=== PATIENT | male | born 1970 | race Caucasian/White ===

== ENCOUNTER 2022-01-19 09:46 | Inpatient (IN) | payer MEDICAID, SELFPAY ==
[2022-01-19] VITALS (43 sets, daily range): BP systolic 138–175; BP diastolic 96–126; PULSE 77–112; RESP 14–28; TEMP 37.1–37.2; O2SAT 90–95; BMI 26.8
--- NOTE | 2022-01-19 09:51 | XR_ITS ---
WS: [id number] Exam: XR chest 1V portable [id number] Date/Time of Exam: 01/19/2022 10:01 AM Reason For Exam: chest pain No priors. Bibasal interstitial infiltrates noted that may represent chronic change or active pneumonia. Normal cardiomediastinal silhouette. Blunted left costophrenic angle that might indicate small pleural effus ion. No pneumothorax. Bony structures are intact. XR/XR chest 1V portable [id number] IMPRESSION: 1. 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 Possible small left pleural effusion.
--- NOTE | 2022-01-19 09:51 | ECG_ITS ---
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 Measurements Intervals [place] Rate: 105 P: 54 [place]: 186 QRS: 47 QRSD: 94 T: 52 QT: 350 QTc: 463 Interpretive Statements SINUS TACHYCARDIA WITH FREQUENT SUPRAVENTRICULAR PREMATURE COMPLEXES LEFT ATRIAL ENLARGEMENT [-0.15mV P WAVE IN V1/V2] LEFT VENTRICULAR HYPERTROPHY AND ST-T CHANGE [VOLTAGE CRITERIA PLUS ST/T ABNORMALITY] Compared to ECG 01/19/2022 10:03:45 No significant changes Electronically Signed On 01-19-2022 20:59:02 CDT by Elis Robles M.D. [id number]
[2022-01-19] MEDS: aspirin 81 mg Chew Tablet 324 MG PO (11:21)
[2022-01-19] MEDS: nitroglycerin 1 gm/inch oint Pkt 1 INCH TOPICAL (11:21)
[2022-01-19] MEDS: aspirin 81 mg Chew Tablet PO (11:30)
[2022-01-19 11:47] LABS: Basophils # 0.1 10^3/uL (0.0-0.1); Basophils % 0.4 %; Eosinophils # 0.1 10^3/uL (0.0-0.8); Eosinophils % 0.8 %; Hemoglobin 14.7 g/dL (11.7-16.6); Lymphocytes # 1.8 10^3/uL (0.8-4.8); Mean Corpuscular HGB Conc 32.7 g/dL (30.0-36.0); Mean Corpuscular Hemoglobin 30.4 pg (28.0-34.0); Mean Platelet Volume 11.6 fL (7.4-10.4); Monocytes # 0.8 10^3/uL (0.2-0.9); Monocytes % 4.9 %; Neutrophils # 13.15 10^3/uL (1.8-7.7); Neutrophils % 82.6 %; Nucleated Red Blood Cells % 0 %; Platelet Count 210 10^3/cmm (130-400); Red Blood Count 4.84 10^6/uL (4.1-5.3); Red Cell Distribution Width 13.2 % (12.1-15.1); White Blood Count 15.9 10^3/uL (4.0-10.0)
--- NOTE | 2022-01-19 11:51 | ECG_ITS ---
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 Measurements Intervals [place] Rate: 109 P: 38 [place]: 140 QRS: 52 QRSD: 89 T: 64 QT: 333 QTc: 450 Interpretive Statements SINUS TACHYCARDIA POSSIBLE LEFT ATRIAL ENLARGEMENT [-0.1mV P-WAVE IN V1/V2] LEFT VENTRICULAR HYPERTROPHY AND ST-T CHANGE [VOLTAGE CRITERIA PLUS ST/T ABNORMALITY] No previous ECG available for comparison Electronically Signed On 01-19-2022 21:04:08 CDT by Elis Robles M.D. [id number]
[2022-01-19 12:03] LABS: Alanine Aminotransferase 19 U/L (0-41); Albumin Level 4.5 g/dL (3.5-5.2); Alkaline Phosphatase 66 IU/L (40-130); Anion Gap 17.9 (5-19); Aspartate Amino Transferase 18 U/L (0-40); Blood Urea Nitrogen 20 mg/dL (6-20); Calcium 9.2 mg/dL (8.5-10.5); Carbon Dioxide 21 mmol/L (22-29); Chloride 104 mmol/L (98-107); Globulin 2.5 g/dL (1.3-4.6); Glomerular Filtration Rate 88.3 mL/min (90-130); Glucose 91 mg/dL (65-115); Osmolality Calculated 290 mOsm/kg (285-295); Potassium 3.9 mmol/L (3.5-5.1); Sodium 139 mmol/L (136-145); Total Bilirubin 0.7 mg/dL (0.15-1.2)
[2022-01-19 12:06] LABS: Troponin(5th) Baseline 31 ng/L (0-15)
--- NOTE | 2022-01-19 12:17 | W.ED.CHESTPA ---
HPI - Chest Pain General: Chief Complaint: Chest Pain Stated Complaint: Chest Pain Time Seen by Provider: 01/19/22 10:08 Source: patient Mode of arrival: ambulatory Limitations: no limitations History of Present Illness: 51-year-old male presents emergency room with complaint of chest pain. States he has had the pain for 2 weeks worse with exertion better when he rests. He gets diaphoretic and short of breath with that. He has no known history of heart disease he is not diabetic he is not currently taking anything. He has noticed that is progressively been worsening over that timeframe. Symptoms have progressively intensified over the last 2 weeks as well MD complaint: chest pain Onset (ago): week(s) (2) Timing of current episode: episodic Prior episodes: Yes Onset: during rest and during exertion Pain location: left chest Quality: tightness, aching and heaviness Relieving factors: rest Exacerbating factors: exertion Associated symptoms: Reports diaphoresis and dyspnea; Deny abdominal pain, fever(s), leg edema, nausea, palpitations, sense of impending doom, syncope or vomiting Treatment prior to arrival: none Review of Systems Const: Reports: diaphoresis; Denies: fever(s), chills, fatigue or malaise ENMT: Denies: throat pain, ear or mastoid pain, nasal discharge or nasal congestion Card: Reports: chest pain; Denies: palpitations or syncope Resp: Reports: dyspnea; Denies: productive cough, non-productive cough or wheezing GI: Denies: abdominal pain, nausea or vomiting : Denies: flank pain, difficulty urinating, dysuria, urinary frequency or urinary urgency Skin/Breast: Denies: rash or pruritus PFS ED PFSH: Medical History No significant past medical history Surgical History No pertinent past surgical history Social History Smoking and tobacco status: current every day smoker Alcohol intake: never Physical Exam Const: GENERAL APPEARANCE: cooperative and comfortable ORIENTATION/CONSCIOUSNESS: Yes awake, Yes oriented to person, Yes oriented to place and Yes oriented to time HENMT: COMMON NORMALS: normocephalic and atraumatic HEAD & SCALP: normocephalic and atraumatic Resp: COMMON NORMALS: normal respiratory effort, No retractions, No use of accessory muscles and clear to auscultation bilaterally AUSCULTATION: clear to auscultation bilaterally Cardio: COMMON NORMALS: regular rate, regular rhythm and No murmurs present (Cardio) RATE: regular rate RHYTHM: regular rhythm GI: COMMON NORMALS: Soft to palpation and No hepatosplenomegaly present AUSCULTATION: Yes normoactive bowel sounds PALPATION: Yes Soft to palpation, No Tenderness to palpation present (GI), No Guarding due to palpation present (GI) and Yes No hepatosplenomegaly present Extremity: COMMON NORMALS: normal to inspection, capillary refill normal, no clubbing, cyanosis or edema, no calf tenderness and no pedal edema Neuro: SENSORIUM/ORIENTATION: Yes oriented to person, Yes oriented to place and Yes oriented to time Skin: COMMON NORMALS: no rashes or lesions noted GENERAL SKIN EXAM: no rashes or lesions noted Course Vital Signs: Vital signs: Vital Signs Temperature 98.7 F 01/19/22 09:58 Pulse Rate 105 H 01/19/22 12:15 Respiratory Rate 18 01/19/22 12:15 Blood Pressure 138/115 01/19/22 13:56 Pulse Oximetry 93 01/19/22 12:15 MDM - Chest Pain Medical Decision Making Patient's symptoms are quite concerning with place Nitropaste chest x-ray read as pneumonia was given Rocephin and Zithromax. More concerned about anginal-like symptoms especially escalation discussed with hospitalist we switched him to a nitro drip will admit consult cardiology Medical Records I reviewed the patient's medical records. Lab Data I reviewed the patient's lab results. : 01/19/22 11:09 01/19/22 11:09 Radiology Impressions Chest X-Ray 01/19/22 09:51 IMPRESSION: 1. Bibasal interstitial infiltrates that may represent active pneumonia or chronic change. Possible small left pleural effusion. Laboratory Results WBC 15.9 10^3/uL (4.0-10.0) H 01/19/22 11:09 RBC 4.84 10^6/uL (4.1-5.3) 01/19/22 11:09 Hgb 14.7 g/dL (11.7-16.6) 01/19/22 11:09 Hct 45.0 % (42.0-52.0) 01/19/22 11:09 MCV 93.0 fl (80-94) 01/19/22 11:09 MCH 30.4 pg (28.0-34.0) 01/19/22 11:09 MCHC 32.7 g/dL (30.0-36.0) 01/19/22 11:09 RDW 13.2 % (12.1-15.1) 01/19/22 11:09 Plt Count 210 10^3/cmm (130-400) 01/19/22 11:09 MPV 11.6 fL (7.4-10.4) H 01/19/22 11:09 Neut % (Auto) 82.6 % 01/19/22 11:09 Lymph % (Auto) 11.0 % 01/19/22 11:09 Marion % (Auto) 4.9 % 01/19/22 11:09 Eos % (Auto) 0.8 % 01/19/22 11:09 Baso % (Auto) 0.4 % 01/19/22 11:09 Neut # (Auto) 13.15 10^3/uL (1.8-7.7) H 01/19/22 11:09 Lymph # (Auto) 1.8 10^3/uL (0.8-4.8) 01/19/22 11:09 Marion # (Auto) 0.8 10^3/uL (0.2-0.9) 01/19/22 11:09 Eos # (Auto) 0.1 10^3/uL (0.0-0.8) 01/19/22 11:09 Baso # (Auto) 0.1 10^3/uL (0.0-0.1) 01/19/22 11:09 Nucleated RBC % (auto) 0 % 01/19/22 11:09 Nucleated RBCs # 0.0 /100WBC 01/19/22 11:09 Sodium 139 mmol/L (136-145) 01/19/22 11:09 Potassium 3.9 mmol/L (3.5-5.1) 01/19/22 11:09 Chloride 104 mmol/L (98-107) 01/19/22 11:09 Carbon Dioxide 21 mmol/L (22-29) L 01/19/22 11:09 Anion Gap 17.9 (5-19) 01/19/22 11:09 BUN 20 mg/dL (6-20) 01/19/22 11:09 Creatinine 0.9 mg/dL (0.7-1.2) 01/19/22 11:09 GFR Calculation 88.3 mL/min (90-130) L 01/19/22 11:09 Glucose 91 mg/dL (65-115) 01/19/22 11:09 Calculated Osmolality 290 mOsm/kg (285-295) 01/19/22 11:09 Calcium 9.2 mg/dL (8.5-10.5) 01/19/22 11:09 Total Bilirubin 0.7 mg/dL (0.15-1.2) 01/19/22 11:09 AST 18 U/L (0-40) 01/19/22 11:09 ALT 19 U/L (0-41) 01/19/22 11:09 Alkaline Phosphatase 66 IU/L (40-130) 01/19/22 11:09 Troponin T Baseline 31 ng/L (0-15) H 01/19/22 11:09 Troponin T 120 Minute 29.35 ng/L (0-15) H 01/19/22 11:50 Delta Troponin T -1.65 ABS# (0-10) L 01/19/22 11:50 Total Protein 7.0 g/dL (6.6-8.7) 01/19/22 11:09 Albumin 4.5 g/dL (3.5-5.2) 01/19/22 11:09 Globulin 2.5 g/dL (1.3-4.6) 01/19/22 11:09 Discharge Plan Discharge Patient Disposition: Admitted As Inpatient Admit Provider: Mark Pimentel Clinical Impression: Stable angina, Pneumonia Condition: Stable Coding Level of Care Code ED Hypoid Gear Tester for Thomas Fwd Exam Detailed
[2022-01-19] MEDS: cefTRIAXone 1,000 MG in sodium chloride 0.9% (plus) 50 ML 100 MG IV (12:24)
[2022-01-19 12:38] LABS: Troponin 5 2HR 29.35 ng/L (0-15)
[2022-01-19 12:43] LABS: Troponin 5 2HR Delta -1.65 ABS# (0-10)
[2022-01-19] MEDS: azithromycin 500 MG in sodium chloride 0.9% 250 ML 250 MG IV (12:54)
[2022-01-19] MEDS: nitroglycerin drip 50 MG/250 ML PREMIX IV (14:16)
--- NOTE | 2022-01-19 14:29 | USCV_ITS ---
Diallo Ed Age: 51 Gender: M : 1970 Exam Date: 01/19/2022 15:08 Ordering Phys: Mark Pimentel MD Technologist: Julien Bird Exam Location: [facility] [place] Indication: Chest pain BP: 115 / 115 HR: 43 Rhythm: Sinus Technical Quality: Adequate MEASUREMENTS (Male / Female) Normal Values 2D ECHO LV Diastolic Diameter PLAX 6.7 cm 4.2 - 5.9 / 3.9 - 5.3 cm LV Systolic Diameter PLAX 5.8 cm IVS Diastolic Thickness 1.3 cm 0.6 - 1.0 / 0.6 - 0.9 cm IVS Systolic Thickness 1.2 cm LVPW Diastolic Thickness 1.2 cm 0.6 - 1.0 / 0.6 - 0.9 cm LVPW Systolic Thickness 1.2 cm LVOT Diameter 2.0 cm LV Ejection Fraction 2D Teich 17.8 % LV Ejection Fraction MOD 2C 29.3 % LV Ejection Fraction 2C AL 28.4 % LA Diameter 4.3 cm Aorta at Sinotubular Diameter 2.9 cm M-MODE Aortic Annulus Diameter 3.7 cm LA Ao Ratio MM 1.1 MV E Point Septal Separation 2.6 cm DOPPLER MV Area PHT 5.0 cm squared Mitral E to A Ratio 3.5 MV E' Velocity 66.0 cm/s Mitral E to MV E' Ratio 17.0 Mitral E to LV E' Lateral Ratio 16.1 Mitral E to LV E' Septal Ratio 17.9 TR Peak Velocity 129.7 cm/s TR Peak Gradient 6.7 mmHg TV Peak E Velocity 85.0 cm/s Right Atrial Pressure 3.0 mmHg Pulmonary Artery Systolic Pressu 9.7 mmHg PV Peak Velocity 83.0 cm/s FINDINGS Left Ventricle Moderately dilated left ventricle. Severely decreased left ventricular systolic function. Left ventricular ejection fraction is estimated at 15 %. Severe global hypokinesis. Abnormal diastolic dysfunction. Right Ventricle Normal right ventricular size and systolic function. RVSP could not be calculated due to incomplete tricuspid regurgitation velocity profile. Right Atrium Normal right atrial size. Left Atrium Moderately increased left atrial size. Mitral Valve Mildly thickened mitral valve. No mitral valve stenosis. Moderate to severe mitral valve regurgitation. Aortic Valve Aortic valve not well visualized. Aortic valve was not assessed by Doppler. Tricuspid Valve Structurally normal tricuspid valve. Pulmonic Valve Pulmonic valve not well visualized. No significant pulmonary valve regurgitation. Pericardium No pericardial effusion. Aorta Normal-sized aortic root. IVC Inferior vena cava not visualized. CONCLUSIONS 1. Moderately dilated left ventricle. Severely decreased left ventricular systolic function. Left ventricular ejection fraction is estimated at 15 %. Severe global hypokinesis. Abnormal diastolic dysfunction. 2. Normal right ventricular size and systolic function. 3. Moderate to severe mitral valve regurgitation. 4. No prior similar studies to compare. India Jordan MD (Electronically Signed) Final Date: 19 January 2022 15:58 S
--- NOTE | 2022-01-19 14:32 | PM.HP ---
Providers/Chief Complaint Admitting Physician: Mark Pimentel MD Chief Complaint: Chest Pain History of Present Illness Ed Diallo is a 51 year old male with no segment past medical history, chronic smoker presents to the ER today because of left-sided retrosternal chest pain radiating to the left and jaw on and off for last 2 weeks on exertion getting relieved at rest but constant even at rest since today morning. Pain associated with shortness of breath which gets worse on laying down flat along with chest heaviness. Patient complaining of mild cough on and off denies any runny nose, fever, exposure to COVID-19, sick contact. In the ER patient was started on a nitro patch which relieved chest pain at 4 hours but on examination patient continues to complain of mild chest pain. Blood work in the ER significant for a vitamin 15.9, hemoglobin of 14.7, sodium of 139, creatinine of 0.9, baseline troponin of 31, delta of -1 in 2 hours. Chest x-ray done as below. EKG showing sinus tachycardia with frequent VPCs, LVH with ST-T changes, T wave depression in V3 to V6 Review of Systems General: Reports: 10 or more systems reviewed and unremarkable except in HPI and below Const: Denies: fever(s), chills, body aches, change in appetite, change in weight, malaise, night sweats, diaphoresis, change in sleep pattern, daytime sleepiness or snoring Eyes: Denies: change in vision, blurry vision, photophobia, eye discomfort or eye discharge ENMT: Denies: throat pain, enlarged tonsils, hoarseness, mouth pain, oral sores, dry mouth, tinnitus, nasal congestion or post nasal drip Card: Denies: chest pain, palpitations, irregular heart rhythm, edema, swelling of feet/ankles, lightheadedness, syncope, pre-syncope, dyspnea on exertion, orthopnea, leg pain with exertion or acrocyanosis Resp: Denies: dyspnea, productive cough, non-productive cough, wheezing, stridor, pain on inspiration, change in phlegm color, hemoptysis or chest congestion GI: Denies: abdominal pain, nausea, vomiting, hematemesis, coffee ground emesis, dysphagia, heartburn, diarrhea, constipation, bloating, GI cramping, change in bowel habits, pain on defecation, hematochezia or melena : Denies: flank pain, difficulty urinating, dysuria, urinary frequency, urinary urgency, urinary hesitancy, urinary dribbling, difficulty starting urination, change in urine stream, nocturia or hematuria Musc: Denies: neck pain, back pain, extremity pain, joint pain, joint swelling, joint redness, joint stiffness or limited range of motion Neuro: Denies: headache(s), numbness in extremities, weakness in extremities, sensory changes, lack of coordination, difficulty walking, frequent falls, dizziness, vertigo, confusion, Slurred speech present, difficulty communicating thoughts or seizure-like activity Psych: Denies: anxiety, depression, mood swings, panic attacks, hopelessness or irritability Endo: Denies: polyuria, polydipsia, tired all the time, cold intolerance, excessive sweating, flushing or heat intolerance Beck/Lymph: Denies: easy bruising or easy bleeding All/Imm: Denies: tongue swelling, facial swelling or acute wheezing Medications/Allergies Home Medications Medication Instructions Recorded Confirmed Last Taken Type acetaminophen 325 mg capsule 325 mg PO QID PRN 01/19/22 01/19/22 Unknown History (Tylenol) ascorbic acid (vitamin C) 500 mg 500 mg PO DAILY 01/19/22 01/19/22 01/18/22 History tablet,extended release (Vitamin C ER) [id number] 333 mg-133 1 tab PO DAILY 01/19/22 01/19/22 01/18/22 History mg-5 mg tablet cholecalciferol (vitamin D3) 25 25 mcg PO DAILY 01/19/22 01/19/22 01/18/22 History mcg (1,000 unit) capsule (Vitamin D3) Allergies Allergy/AdvReac Type Severity Reaction Status Date / Time No Known Allergies Allergy Verified 01/19/22 11:44 PFSH Acute PFSH: Medical History No significant past medical history Surgical History No pertinent past surgical history Social History Smoking and tobacco status: current every day smoker Alcohol intake: never Vitals/I&O/Wt Last Vital Signs Temp 98.7 F 01/19/22 09:58 Pulse 105 H 01/19/22 12:15 Resp 18 01/19/22 12:15 BP 138/115 01/19/22 13:56 Pulse Ox 93 01/19/22 12:15 01/18/22 01/19/22 01/19/22 22:59 06:59 14:59 Intake Total 300 / 300 Balance 300 / 300 Weight last 48 hrs Weight 89.811 kg Physical Exam Narrative: General: AO x3, sitting up in bed, 90 degrees, mild distress because of chest pain, on room air HEENT: PERRLA, pupils bilaterally equal and reactive Chest: Normal vesicular breath sounds, bilateral breath sounds equal, fine crackles present bilaterally lower zone CVS: S1-S2 regular, no murmurs, no tachycardia, no gallops, no rubs Abdomen: Soft, nontender, no organomegaly, bowel sounds present Neuro: No focal deficits, no facial deformity, AO x3, power 5/5 in all limbs Data : 01/19/22 11:09 01/19/22 11:09 A&P Assessment and plan (1) Chest pain at rest: Status: Acute (2) Unstable angina: Status: Acute (3) Shortness of breath: Status: Acute (4) Congestive heart failure: Status: Acute Qualifiers: Heart failure type: combined systolic and diastolic Heart failure chronicity: acute on chronic Qualified Code(s): I50.43 - Acute on chronic combined systolic (congestive) and diastolic (congestive) heart failure (5) Pneumonia: Status: Suspected Plan 51-year-old gentleman no significant past medical history other than being a chronic smoker presents to the ER because of worsening chest pain for last couple of weeks and symptoms suggestive of unstable angina. Chest pain: Symptoms suggestive of unstable angina. Chronic smoker. Having tachycardia. Blood pressure is mildly elevated. Check D-dimer, echocardiogram, urine drug screen, A1c, lipid panel. If D-dimer is elevated can plan for CTA Patient already given 325 mg of aspirin in the ER. Aspirin 81 mg oral daily, atorvastatin 80 mg daily. Metoprolol 25 mg twice daily. Nitro drip. Monitor blood pressures. Morphine as needed. Will consult cardiology given typical symptoms. If plan for cardiac stress test and if D-dimer elevated can plan for CTA. Avoiding CTA currently in case if cardiology wants to do cardiac angiogram in the next 24 hours. Shortness of breath: Could be secondary to unstable angina versus high likelihood of congestive heart failure Chest x-ray being read by radiology for a possible pneumonia. Pneumonia for now likely. Chest x-ray suggestive of congestive heart failure Check proBNP, procalcitonin, sputum culture, urine Legionella, bacterial antigen. IV Lasix 20 mg once as patient is Lasix na?ve. Will await echocardiogram results. Given azithromycin and ceftriaxone in the ER. For now switch to oral Levaquin 500 mg oral daily. Analgesia: Tylenol every 6 hours as needed, morphine 2 mg every 4 hours as needed. Glycemic control: Not needed. Check A1c. Nutrition: Cardiac diet. CODE STATUS: Full code. PUD prophylaxis: Protonix 40 mg IV daily. DVT prophylaxis: Lovenox 40 mg Admit to CSU. Attestations Medical Necessity Statement*: Patient requires more than 2 midnights for management of chest pain, highly suggestive of unstable angina, shortness of breath while ACS, heart failure, pneumonia is ruled out. Time Spent in Patient Care: Greater than 35 minutes Coding Level of Care Code Acute Design Engineer Agricultural Equipment for Thomas Moreno Diagnoses Chest pain at rest R07.9 Unstable angina I20.0 Shortness of breath R06.02 Pneumonia J18.9 Congestive heart failure I50.43 Heart failure type: combined systolic and diastolic Heart failure chronicity: acute on chronic
[2022-01-19] MEDS: atorvastatin 40 mg Tablet PO (14:40)
[2022-01-19] MEDS: FUROsemide 10 mg/mL SDV 2mL 20 MG IVP ×2 (14:41→20:11)
[2022-01-19] MEDS: metoprolol tartrate 25 mg Tablet PO ×2 (14:46→20:11)
[2022-01-19 14:49] LABS: Adenovirus Not Detected (NOT DETECT); Chlamydia Pneumoniae Not Detected (NOT DETECT); Coronavirus 229E,HKU1,NL63,OC4 Not Detected (NOT DETECT); Human Metapneumovirus Not Detected (NOT DETECT); Human Rhinovirus/Enterovirus Not Detected (NOT DETECT); Influenza A Not Detected (NOT DETECT); Influenza A H1 Not Detected (NOT DETECT); Influenza A H1-2009 Not Detected (NOT DETECT); Influenza A H3 Not Detected (NOT DETECT); Influenza B Not Detected (NOT DETECT); Mycoplasma Pneumoniae Not Detected (NOT DETECT); Parainfluenza Virus Type 1 Not Detected (NOT DETECT); Parainfluenza Virus Type 2 Not Detected (NOT DETECT); Parainfluenza Virus Type 3 Not Detected (NOT DETECT); Parainfluenza Virus Type 4 Not Detected (NOT DETECT); Respiratory Syncytial Virus A Not Detected (NOT DETECT); Respiratory Syncytial Virus B Not Detected (NOT DETECT); SARS-COV-2 Not Detected (NOT DETECT)
[2022-01-19 15:42] LABS: Amphetamines Screen Urine Negative (Negative); Barbiturates Screen Urine Negative (Negative); Benzodiazepines Screen Urine Negative (Negative); Cocaine Screen Urine Negative (Negative); Opiate Screen Urine Negative (Negative); PCP Screen Urine Negative (Negative); THC Screen Urine Negative (Negative)
--- NOTE | 2022-01-19 15:44 | P.CONIM_ITS ---
Providers/Reason For Consult Consulting Physician/Specialty*: Dr. Jordan, Cardiology Reason for Consult*: Chest pain Attending Physician: Mark Pimentel MD History of Present Illness History of Present Illness Ed Diallo is a 51 year old male with PMHx of chronic active smoking (7 cigs/day presently) presented for evaluation of chest pain for last few weeks. Chest pain and SOB initially only at night while laying down and then progressively worsened to happen even during day time and lasting several hours. He tells me chest pain 7/10 on arrival to ER with radiation to left arm and jaw and while on NTG gtt it is down to 4/10 and jaw and arm pain has resolved. NT Pro BNP > 4000 and was given lasix 20 mg IV x 1. He is still sitting propped up and is unable to lay flat. CXR reported as bibasilar infiltrates and small left pleural effusion. EKG with sinus rhythm and LVH with secondary ST-T wave changes. Troponin T flat. ECho with LVEF=15% with moderate to severe MR. Review of Systems General: Reports: 10 or more systems reviewed and unremarkable except in HPI and below Const: Reports: diaphoresis; Denies: fever(s), chills, fatigue or malaise ENMT: Denies: throat pain, ear or mastoid pain, nasal discharge or nasal congestion Card: Reports: chest pain and orthopnea; Denies: palpitations, edema, swelling of feet/ankles or syncope Resp: Reports: dyspnea; Denies: productive cough, non-productive cough or wheezing GI: Denies: abdominal pain, nausea or vomiting : Denies: flank pain, difficulty urinating, dysuria, urinary frequency or urinary urgency Skin/Breast: Denies: rash or pruritus Neuro: Denies: headache(s), numbness in extremities or dizziness Psych: Denies: anxiety or depression Endo: Denies: tired all the time Beck/Lymph: Denies: petechiae or purpura All/Imm: Denies: facial swelling Medications/Allergies Home Medications Medication Instructions Recorded Confirmed Last Taken Type acetaminophen 325 mg capsule 325 mg PO QID PRN 01/19/22 01/19/22 Unknown History (Tylenol) ascorbic acid (vitamin C) 500 mg 500 mg PO DAILY 01/19/22 01/19/22 01/18/22 History tablet,extended release (Vitamin C ER) [id number] 333 mg-133 1 tab PO DAILY 01/19/22 01/19/22 01/18/22 History mg-5 mg tablet cholecalciferol (vitamin D3) 25 25 mcg PO DAILY 01/19/22 01/19/22 01/18/22 History mcg (1,000 unit) capsule (Vitamin D3) Allergies Allergy/AdvReac Type Severity Reaction Status Date / Time No Known Allergies Allergy Verified 01/19/22 11:44 Current Medications Generic Name Dose Route Start Last Admin Trade Name Abebe PRN Reason Stop Dose Admin Atorvastatin Calcium 40 mg 01/19/22 14:30 01/19/22 14:40 Atorvastatin 40 Mg Tablet PO 40 mg BEDTIME AYUSH Administration Nitroglycerin/Dextrose 50 mg in 250 mls @ 0 mls/hr 01/19/22 14:00 01/19/22 15:16 Nitroglycerin Drip IV 15 mcg/min .Q0M AYUSH 4.5 mls/hr Titration Protocol Per Protocol Metoprolol Tartrate 25 mg 01/19/22 14:30 01/19/22 14:46 Metoprolol Tartrate 25 Mg Tablet PO 25 mg BID@0900,2100 AYUSH Administration PFSH Acute PFSH: Medical History No significant past medical history Surgical History No pertinent past surgical history Social History Smoking and tobacco status: current every day smoker Alcohol intake: never Vitals/I&O/Wt Last Vital Signs Temp 98.7 F 01/19/22 09:58 Pulse 99 01/19/22 15:12 Resp 17 01/19/22 15:12 BP 156/115 01/19/22 15:12 Pulse Ox 94 01/19/22 15:12 01/19/22 01/19/22 01/19/22 06:59 14:59 22:59 Intake Total 300.65 / 300.65 1.7 / 302.35 Balance 300.65 / 300.65 1.7 / 302.35 Weight last 48 hrs Weight 198 lb Physical Exam Narrative: GENERAL: Averagely built and averagely nourished in no acute distress HEENT: Extraocular movement intact. Pupils equal round reactive to light. No pallor or icterus. NECK: central trachea, + JVD, No carotid bruit. CARDIOVASCULAR SYSTEM: S1-S2 regular. apical systolic murmur+, No rubs. RESPIRATORY SYSTEM: Chest clear to auscultation except for bibasilar rales. No wheezes rhonchi heard. ABDOMEN: Soft, nontender and nondistended. Normal bowel sounds present. No hepatosplenomegaly appreciated. EXTREMITIES: No cyanosis or clubbing. No edema. No signs of chronic venous insu fficiency. PROMOTION PRODUCER: Patient is alert oriented ?3. No focal neurological deficits. Cranial nerves intact. SKIN: Normal turgor and temperature. No breakdown, rash or nail changes noted. PSYCH: Normal insight and judgment. Data : 01/19/22 11:09 01/19/22 11:09 Other data: EKG showed sinus tachycardia, possible left atrial enlargement, left ventricular hypertrophy and secondary ST-T wave changes A&P Assessment and plan (1) Congestive heart failure: HFrEF (LVEF=15%) in exacerbation -another dose of lasix later tonight -Based on clinical progression, will decide of [facility] tomorrow/day after. -Risks and benefits were discussed with the patients. Possible complications including risk of heart attack stroke and , coronary perforation, arrhythmia, cardiac tamponade in urgent CABG were discussed with the patient as well. Status: Acute Qualifiers: Heart failure type: combined systolic and diastolic Heart failure chronicity: acute on chronic Qualified Code(s): I50.43 - Acute on chronic combined systolic (congestive) and diastolic (congestive) heart failure (2) Chest pain at rest: Status: Acute Plan Chronic active smoker Moderate to severe MR: will consider CHRIS based on findings of [facility]. Mild leucocytosis Possible PNA Consult Attestations Time Spent in Patient Care: Greater than 35 minutes Coding Level of Care Code Acute Telegraph Editor for [facility] Fwjulien Diagnoses Congestive heart failure I50.43 Heart failure type: combined systolic and diastolic Heart failure chronicity: acute on chronic Chest pain at rest R07.9
[2022-01-19 15:48] LABS: Erythrocyte Sedimentation Rate 2 mm/hr (0-10)
[2022-01-19 15:50] LABS: Add Urine Microscopic? YES; Bilirubin Urine Neg (Negative); Blood Urine 2+ (Negative); Glucose Urine UA Norm (Normal); Ketones Urine 1+ (Negative); Leukocyte Esterase Urine Negative (Negative); Nitrate Urine Negative (Negative); Protein Urine Neg (Negative); Specific Gravity, Urine 1.005 (1.005-1.030); Urine Appearance Clear (CLEAR); Urine Color Straw (Yellow); Urobilinogen Urine Norm (Negative); pH Urine 5 (5-7)
[2022-01-19 15:51] LABS: D Dimer 1.24 ug/mIFEU (0-0.59)
--- NOTE | 2022-01-19 15:51 | ECG_ITS ---
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 Measurements Intervals [place] Rate: 98 P: 55 MO: 156 QRS: 46 QRSD: 100 T: 61 QT: 366 QTc: 469 Interpretive Statements SINUS RHYTHM LEFT ATRIAL ENLARGEMENT [-0.15mV P-WAVE IN V1/V2] LEFT VENTRICULAR HYPERTROPHY AND ST-T CHANGE [VOLTAGE CRITERIA PLUS ST/T ABNORMALITY] Compared to ECG 01/19/2022 11:49:35 Sinus tachycardia no longer present ST (T wave) deviation still present Electronically Signed On 01-19-2022 21:06:57 CDT by Elis Robles M.D. [id number]
[2022-01-19 15:53] LABS: RBC Urine 0-4 /hpf (0-2)
[2022-01-19 15:54] LABS: Add Urine Culture? No; Bacteria Urine TRACE /hpf; WBC Urine RARE /hpf (0-5)
[2022-01-19 15:59] LABS: NT Pro B Type Natriuretic Pept 4521 pg/mL (0-125); Procalcitonin 0.06 ng/mL (0-0.5); Thyroid Stimulating Hormone 0.79 uIU/mL (0.27-4.20); Vitamin B12 317 pg/mL (232-1245)
[2022-01-19 16:07] LABS: Troponin 5 6HR 37.42 ng/L (0-15)
--- NOTE | 2022-01-19 16:07 | USR_ITS ---
PROCEDURE INFORMATION: Exam: US Duplex Lower Extremity Veins, Bilateral Exam date and time: 01/19/2022 4:47 PM Age: 51 years old Clinical indication: Abnormal findings; Abnormal lab test; Elevated d-dimer; Additional info: Elevated dimer TECHNIQUE: Imaging protocol: Real-time Duplex ultrasound of the bilateral extremities with 2-D magana scale, color Doppler flow and spectral waveform analysis with image documentation. Complete exam focused on the bilateral lower extremity veins. COMPARISON: No relevant prior studies available. FINDINGS: Right deep veins: Unremarkable. The common femoral, femoral, proximal profunda femoral and popliteal veins are patent without thrombus. Normal Doppler waveforms. Normal compressibility and/or augmentation response. Right superficial veins: Saphenofemoral junction is patent without thrombus. Left deep veins: Unremarkable. The common femoral, femoral, proximal profunda femoral and popliteal veins are patent without thrombus. Normal Doppler waveforms. Normal compressibility and/or augmentation response. Left superficial veins: Saphenofemoral junction is patent without thrombus. Soft tissues: Unremarkable. US/CV venous duplex [facility] [id number] IMPRESSION: No evidence of deep vein thrombosis.
[2022-01-19 16:08] LABS: Troponin 5 6HR Delta 6.42 ng/L (0-12)
[2022-01-19 16:11] LABS: Iron 58 ug/dL (59-158); Percent Saturation 20.2 % (20-50); Total Iron Binding Capacity 286 mcg/dl; Unsaturated Iron Binding 228 ug/dL (112-347)
[2022-01-19 16:14] LABS: Folate Level 9.4 ng/mL (4.5-32.2)
[2022-01-19] MEDS: pantoprazole 40 mg SDV IVP (16:58)
[2022-01-19] MEDS: metoprolol tartrate 1 mg/1 mL SDV 5 mL 5 MG IVP (17:02)
[2022-01-19] MEDS: potassium chloride ER 20 mEq Tablet PO (17:03)
[2022-01-19] MEDS: enoxaparin 100 mg/mL Syringe 90 MG SUBCUT (17:04)
[2022-01-19 18:37] LABS: Alcohol Level < 10 mg/dL (0-10)
[2022-01-19 20:53] LABS: Influenza A by IFA Negative (Negative); Influenza B by IFA Negative (Negative)
--- NOTE | 2022-01-19 23:58 | PC.NURSE ---
Signed consent attached to chart, patient bathed in CHG, pulses marked, groin and wrist shaved.
[2022-01-20] VITALS (98 sets, daily range): BP systolic 138–175; BP diastolic 89–123; PULSE 70–113; RESP 14–27; TEMP 37.1–37.4; O2SAT 89–98; BMI 26.0
[2022-01-20] MEDS: levoFLOXacin 500 mg Tablet PO (05:16)
[2022-01-20] MEDS: enoxaparin 100 mg/mL Syringe 90 MG SUBCUT (05:16)
[2022-01-20 07:23] LABS: Basophils % 0.4 %; Eosinophils # 0.1 10^3/uL (0.0-0.8); Hematocrit 40.8 % (42.0-52.0); Hemoglobin 13.1 g/dL (11.7-16.6); Lymphocytes # 1.6 10^3/uL (0.8-4.8); Lymphocytes % 16.3 %; Mean Corpuscular HGB Conc 32.1 g/dL (30.0-36.0); Mean Corpuscular Hemoglobin 29.9 pg (28.0-34.0); Mean Corpuscular Volume 93.2 fl (80-94); Mean Platelet Volume 10.9 fL (7.4-10.4); Monocytes # 0.7 10^3/uL (0.2-0.9); Monocytes % 6.7 %; Neutrophils # 7.31 10^3/uL (1.8-7.7); Neutrophils % 75.3 %; Nucleated Red Blood Cells % 0 %; Platelet Count 212 10^3/cmm (130-400); Red Blood Count 4.38 10^6/uL (4.1-5.3); Red Cell Distribution Width 13.2 % (12.1-15.1); White Blood Count 9.7 10^3/uL (4.0-10.0)
--- NOTE | 2022-01-20 07:29 | XACV_ITS ---
Exam Room: [facility] Ht: 183 cm Wt: 87 kg BSA: 2.11 m2 Gender: Male : 1970 Exam Priority: Routine Procedure(s): Procedure Description: Diagnostic procedure Procedure Description: Coronary Angiography Diagnostic Cath Status: Elective Diagnostic Findings * Patient presented with congestive heart failure and an ejection fraction of 10 to 15% by echo. Angiography indicated to assess coronary circulation. Coronary arteries are normal. There is a right dominant system. Conclusions 1. Dilated cardiomyopathy. Normal coronary arteries. Recommendations * Medical treatment. Diagnostic RX Recommendation: medical therapy and/or counseling Anticoagulation: Heparin Clinical Evaluation EBL: 5mL-10mL Procedural Details Procedure Consent Obtained. Admit Source: In Patient. Pre-Procedure Time Out. Identified patient by full name and date of as verbalized by the patient/guarantor. Does the consent match the physician's order: Yes. Accurate & Complete Informed Consent: Yes. Inpatient/Outpatient History & Physical on Chart: Yes. If H&P is completed, is and addenduem needed: N/A; If yes, is the addendum complete: N/A. Visualize and Verify Site with Patient/Guarantor: N/A. Relevant Radiology Images available: N/A. Pre-op teaching completed and patient verbalized understanding. The risks, benefits, and alternatives of sedation and/or procedure were discussed by physician. The patient agrees to continue. Procedure started. [facility] Clinical Fraility Score: 3: Managing Well. Lead Systems Developer Indications: Cardiomyopathy. Chest Pain Symptom Assessment: Asymptomatic. Correct patient, site and procedure confirmed by cath team. Current diagnosis: Cardiomyopathy. PERRLA. Strong, equal hand fountain worker bilaterally. Lungs clear x 5 lobes. IV Site on Arrival: 20 gauge in the left anticubital. IV Fluids: 0.9% NaCl at KVO. 100 mL infused prior to director of cardiac cath lab. Pre Procedural Pulses: bilateral radial was 2+. Pre Procedural Pulses: bilateral dorsalis pedis was 2+. Oxygen started at 2liters/min via nasal canula. right groin was prepped with chloroprep then draped in the usual sterile fashion. right radial was prepped with chloroprep then draped in the usual sterile fashion. Baseline sample Acquired. HR: 82 BPM. Physician notified. Physician arrived. Physician scrubbed in. Immediate Pre-Procedure Time Out. Correct Patient: Yes; Correct Procedure: Yes; Correct Site: Yes; Correct Patient Position: Yes; Correct Supplies: Yes; Dried Flammable Prep: Yes; Blood Products Available: N/A;. Lidocaine 1% infiltrated to the right radial. Arterial access obtained. A 5 czech TIG catheter in over wire. Multiple views taken of left coronary artery. Catheter redirected to the RCA. Multiple views taken of right coronary artery. A TR Band was successful obtaining hemostatsis at the Right Radial artery insertion site. Physician scrubbed out. Patient's family updated. Post Procedure: Pulses reassessed and unchanged. PERRLA. Strong, equal hand fountain worker bilaterally. No VTE prophylaxis required. Medication's Wasted: Heparin = 1000 u. Medication's Wasted: Nitro = 49.8 mg. Medication's Wasted: Lidocaine 1% = 2 mL. Medication's Wasted: Other = Fentanyl 25 mcg. Total IV fluids: mL. Total IV fluids: 20 mL. Post-op diagnosis: Non ischemic cardiomopathy. Complications: none. Estimated blood loss: 5mL-10mL. Responsiveness - Normal response to verbal stimuli; alert and oriented, PERRLA. Airway - Unaffected, no intervention required; spontaneous ventilation. Circulation: W/N/L, pulses unchanged. Nausea/Vomiting: No. Procedure completed. Patient transferred by wheelchair to ICU. Vital chart was stopped. Access Site Site: Right Radial artery Sheath Size: 6 Fr Hemostasis Method: TR Band Hemostasis Success: Successful Procedure Medications Start: 9:33 AM Stop: 9:33 AM Medication: Versed Amount: 1 mg Route: I.V. Start: 9:33 AM Stop: 9:33 AM Medication: Fentanyl Amount: 50 mcg Route: I.V. Start: 9:34 AM Stop: 9:34 AM Medication: Versed Amount: 1 mg Route: I.V. Start: 9:35 AM Stop: 9:35 AM Medication: Fentanyl Amount: 25 mcg Route: I.V. Start: 9:35 AM Stop: 9:35 AM Medication: Nitrogylcerin Amount: 200 mcg Route: I.A. Start: 9:42 AM Stop: 9:42 AM Medication: Heparin Amount: 5000 units Route: I.V. I, the attending physician, have reviewed and verified all procedure medications. Yes, all medications given per verbal order History/Risk Factors Hypertension: No Dyslipidemia: Yes Peripheral Arterial Disease (PAD): No Myocardial Infarction (PA): No Obesity: No Renal Disease: No Tobacco Use: Current/Recent(w/in 1 year) Prior Interventions PCI: No CABG: No Valve Surgery: No Report Signatures Finalized by Dr. Ashok Schwartz MD on 01/20/2022 09:51 AM
[2022-01-20 07:44] LABS: Chol HDL Ratio 3.81 mg/dL (1.0-5.00); Cholesterol 137 mg/dL (0-200); HDL Cholesterol 36 mg/dL (60-100); LDL Cholesterol Calculated 85 mg/dL (50-129); Triglycerides 82 mg/dL (0-150); VLDL Cholestrol Calculation 16 mg/dL (0-30)
[2022-01-20 07:45] LABS: Alanine Aminotransferase 14 U/L (0-41); Albumin Level 4.2 g/dL (3.5-5.2); Alkaline Phosphatase 57 IU/L (40-130); Anion Gap 14.3 (5-19); Aspartate Amino Transferase 13 U/L (0-40); Blood Urea Nitrogen 20 mg/dL (6-20); Calcium 8.9 mg/dL (8.5-10.5); Carbon Dioxide 27 mmol/L (22-29); Chloride 104 mmol/L (98-107); Globulin 1.8 g/dL (1.3-4.6); Glucose 89 mg/dL (65-115); Osmolality Calculated 294 mOsm/kg (285-295); Potassium 4.3 mmol/L (3.5-5.1); Sodium 141 mmol/L (136-145); Total Bilirubin 0.8 mg/dL (0.15-1.2)
[2022-01-20 07:57] LABS: Estmated Average Glucose 91; Hemoglobin A1C 4.8 % (4.0-6.0)
[2022-01-20] MEDS: diphenhydrAMINE 50 mg Capsule PO (08:57)
[2022-01-20] MEDS: potassium chloride ER 20 mEq Tablet PO (08:57)
[2022-01-20] MEDS: metoprolol tartrate 25 mg Tablet PO (08:57)
--- NOTE | 2022-01-20 09:26 | PC.NURSE ---
Pt was taken to entry level lab technician by entry level lab technician staff via wheelchair.
[2022-01-20] MEDS: aspirin 81 mg EC Tablet PO (10:18)
--- NOTE | 2022-01-20 15:20 | PM.PN ---
Subjective Subjective: No complaints overnight. Today morning examination patient states he is feeling a lot better. Continues to remain on room air. Blood pressure is better but diastolic still elevated. Today morning underwent cardiac angiogram which showed nonobstructive CAD. Mother at bedside. Vitals/I&O/Wt Last Vital Signs Temp 98.8 F 01/20/22 07:18 Pulse 98 01/20/22 14:00 Resp 17 01/20/22 12:45 BP 149/118 01/20/22 12:45 Pulse Ox 95 01/20/22 12:45 01/20/22 01/20/22 01/20/22 06:59 14:59 22:59 Intake Total 39.4 / 927.875 400 / 400 Output Total 650 / 2050 Balance -610.6 / -1122.125 400 / 400 Weight last 48 hrs Weight 87.18 kg Weight 89.811 kg Weight 89.811 kg Physical Exam Narrative: General: AO x3, sitting up in bed, 90 degrees, mild distress because of chest pain, on room air HEENT: PERRLA, pupils bilaterally equal and reactive Chest: Normal vesicular breath sounds, bilateral breath sounds equal, fine crackles present bilaterally lower zone CVS: S1-S2 regular, no murmurs, no tachycardia, no gallops, no rubs Abdomen: Soft, nontender, no organomegaly, bowel sounds present Neuro: No focal deficits, no facial deformity, AO x3, power 5/5 in all limbs Data : 01/20/22 06:22 01/20/22 06:22 Micro: Microbiology 01/19/22 16:15 Gram Stain - Final Sputum - Expectorated Sputum Sputum Culture - Preliminary 01/19/22 15:03 Bacterial Antigens - Final Urine Kidney 01/19/22 15:03 Legionella Urinary Antigen - Final Urine,Clean Catch A&P Assessment and plan (1) Chest pain at rest: Status: Acute (2) Shortness of breath: Status: Acute (3) Congestive heart failure: Status: Acute Qualifiers: Heart failure type: combined systolic and diastolic Heart failure chronicity: acute on chronic Qualified Code(s): I50.43 - Acute on chronic combined systolic (congestive) and diastolic (congestive) heart failure (4) Pneumonia: Status: Suspected (5) Dilated cardiomyopathy: Status: Acute (6) Nonischemic cardiomyopathy: Status: Acute (7) Severe mitral valve regurgitation: Status: Acute Plan 51-year-old gentleman no significant past medical history other than being a chronic smoker presents to the ER because of worsening chest pain for last couple of weeks and symptoms suggestive of unstable angina. Chest pain: Post cardiac angiogram. Nonobstructive CAD. Most likely symptoms secondary to congestive heart failure. Echocardiogram results appreciated. Aspirin 81 mg daily. Stop statins. Stop nitro drip, full dose Lovenox. Nonischemic dilated cardiomyopathy: Mixed acute diastolic and systolic congestive heart failure: Shows an EF of 15%, global hypokinesia, moderate to severe mitral regurgitation. Could be secondary to untreated elevated chronic blood pressures versus secondary to chronic mitral regurgitation. Most likely patient will need a CHRIS as an outpatient for further quantification and characterization of mitral regurgitation. Given patient underwent angiogram today and is not having any shortness of breath we will hold off on any IV fluids or Lasix today. Start on heart failure regimen. Switch from metoprolol to Coreg 6.25 twice daily. Can plan for ANDREINA/ARB in next 24 hours. Will need Lasix from tomorrow morning. Given extensively low EF patient will need a LifeVest. Appreciate cardiology recommendations. Pneumonia less likely. We will stop antibiotics. Sputum culture sent results awaited. Analgesia: Tylenol every 6 hours as needed, morphine 2 mg every 4 hours as needed. Glycemic control: Not needed Nutrition: Cardiac diet. CODE STATUS: Full code. PUD prophylaxis: Protonix 40 mg IV daily. DVT prophylaxis: Lovenox 40 mg Continue with CSU care. Attestations Medical Necessity Statement*: Requires further hospitalization for management of nonischemic dilated cardiomyopathy, congestive heart failure while heart failure medications are adjusted Time Spent in Patient Care: Greater than 35 minutes Coding Level of Care Code Acute Military Professional for Chg Fwd Diagnoses Chest pain at rest R07.9 Shortness of breath R06.02 Congestive heart failure I50.43 Heart failure type: combined systolic and diastolic Heart failure chronicity: acute on chronic Pneumonia J18.9 Dilated cardiomyopathy I42.0 Nonischemic cardiomyopathy I42.8 Severe mitral valve regurgitation I34.0
[2022-01-20] MEDS: carvedilol 3.125 mg Tablet PO (15:39)
[2022-01-20] MEDS: pantoprazole 40 mg SDV IVP (17:09)
[2022-01-20] MEDS: carvedilol 6.25 mg Tablet PO (17:10)
[2022-01-21] VITALS (47 sets, daily range): BP systolic 136–176; BP diastolic 91–129; PULSE 73–104; RESP 15–31; TEMP 36.8–37.4; O2SAT 89–97
[2022-01-21] MEDS: nitroglycerin 0.4 mg sublingual Tablet SUBLINGUAL ×3 (05:02→21:01)
[2022-01-21] MEDS: acetaminophen 325 mg Tablet 650 MG PO ×2 (05:20→13:00)
--- NOTE | 2022-01-21 05:25 | PC.NURSE ---
Patient complaining of chest pain, no ekg changes, 2 doses of nitroglycerin tablets administered. patient reports positive response, hospitalist notified.
[2022-01-21 06:18] LABS: Basophils % 0.2 %; Eosinophils # 0.1 10^3/uL (0.0-0.8); Hematocrit 41.4 % (42.0-52.0); Hemoglobin 13.5 g/dL (11.7-16.6); Lymphocytes # 1.2 10^3/uL (0.8-4.8); Lymphocytes % 9.5 %; Mean Corpuscular HGB Conc 32.6 g/dL (30.0-36.0); Mean Corpuscular Hemoglobin 30.3 pg (28.0-34.0); Mean Platelet Volume 10.5 fL (7.4-10.4); Monocytes # 0.6 10^3/uL (0.2-0.9); Monocytes % 5.2 %; Neutrophils # 10.38 10^3/uL (1.8-7.7); Neutrophils % 83.7 %; Nucleated Red Blood Cells % 0 %; Platelet Count 198 10^3/cmm (130-400); Red Blood Count 4.45 10^6/uL (4.1-5.3); Red Cell Distribution Width 13.2 % (12.1-15.1); White Blood Count 12.4 10^3/uL (4.0-10.0)
[2022-01-21 06:51] LABS: Alanine Aminotransferase 13 U/L (0-41); Albumin Level 3.4 g/dL (3.5-5.2); Alkaline Phosphatase 54 IU/L (40-130); Anion Gap 14.7 (5-19); Aspartate Amino Transferase 12 U/L (0-40); Blood Urea Nitrogen 23 mg/dL (6-20); Calcium 8.9 mg/dL (8.5-10.5); Carbon Dioxide 25 mmol/L (22-29); Chloride 105 mmol/L (98-107); Globulin 2.8 g/dL (1.3-4.6); Glucose 104 mg/dL (65-115); Osmolality Calculated 294 mOsm/kg (285-295); Potassium 4.7 mmol/L (3.5-5.1); Sodium 140 mmol/L (136-145); Total Bilirubin 0.6 mg/dL (0.15-1.2); Total Protein 6.2 g/dL (6.6-8.7)
[2022-01-21] MEDS: potassium chloride ER 20 mEq Tablet PO (08:24)
[2022-01-21] MEDS: losartan 50 mg Tablet 25 MG PO ×2 (08:24→16:01)
[2022-01-21] MEDS: aspirin 81 mg EC Tablet PO (08:25)
[2022-01-21] MEDS: carvedilol 6.25 mg Tablet PO ×2 (08:25→14:24)
--- NOTE | 2022-01-21 10:18 | PC.CHAP ---
Pastoral Care Encounter/Spiritual Assessment Type of Contact [] Declined expanded function dental assistant visit [] Patient/Family/Request visit [] Outpatient visit [] Follow-up visit [] Physician referral [] Code/Alert [x] Routine visit [] Staff referral [] Actively dying [] Patient sleeping [] Family support [] [] Out of room [] Palliative care [] [x] Receiving care in room [] Pre-surgical visit [] Trauma [] Long length of stay [x] ICU visit [] Other: Relational/Emotional Strength [] Patient feels connected with others/family/visitors/staff [] Distress [] Loneliness/isolation [] Abandonment Spirituality of Patient [] Person of Tiffany [] Attends Jainism of their Tiffany [] Believes in Prayer [] Reads Bible or Restoration materials [] There are Spiritual issues to be addressed Upsetter Setter Up Interventions [x] Prayer [] Active listening [] Non-anxious presence [] Spiritual/emotional support [] Crisis/trauma care [] Spiritual counseling [] Bereavement support [] Provided bereavement packet [] Provided Bible/devotional materials [] Provided toy/stuffed animal, coloring book to patient or family member [] Provided Communion [] Anointing/[place] [] Salvation [x] Completed spiritual assessment [] Other: Impact on Illness or Injury [] Angry [] Fearful [] Anxious [] Often cries [] Exhaustion [] Unable to work [] Unable to attend druze [] Unable to walk/stand [] Unable to read [] Unable to drive [] Unable to eat/drink [] Unable to sleep [] Unable to be with family [] Patient intubated [] Other: Summary Time spent with patient
[2022-01-21] MEDS: FUROsemide 40 mg Tablet PO (13:00)
[2022-01-21] MEDS: calcium carbonate 500 mg Chew Tablet 1000 MG PO (13:00)
--- NOTE | 2022-01-21 14:55 | P.PN_ITS ---
Subjective Subjective: s/p LHC yesterday via right radial with normal coronaries feels better Medications: Reviewed: Yes Vitals/I&O/Wt Last Vital Signs Temp 99.4 F 01/21/22 12:00 Pulse 90 01/21/22 14:19 Resp 20 H 01/21/22 12:00 BP 176/128 01/21/22 12:00 Pulse Ox 94 01/21/22 12:00 O2 Del Method 01/21/22 12:00 O2 Flow Rate 1.5 01/21/22 12:00 01/20/22 01/21/22 01/21/22 22:59 06:59 14:59 Intake Total 910 / 1310 200 / 1510 Balance 910 / 1310 200 / 1510 Weight last 48 hrs Weight 192 lb 9.6 oz Weight 192 lb 3.2 oz Weight 198 lb Physical Exam Narrative: GENERAL: Averagely built and averagely nourished in no acute distress HEENT: Extraocular movement intact. Pupils equal round reactive to light. No pallor or icterus. NECK: central trachea, + JVD, No carotid bruit. CARDIOVASCULAR SYSTEM: S1-S2 regular. apical systolic murmur+, No rubs. RESPIRATORY SYSTEM: Chest clear to auscultation except for bibasilar rales. No wheezes rhonchi heard. ABDOMEN: Soft, nontender and nondistended. Normal bowel sounds present. No hepatosplenomegaly appreciated. EXTREMITIES: No cyanosis or clubbing. No edema. No signs of chronic venous insufficiency. SENIOR AUTOMATION ENGINEER: Patient is alert oriented ?3. No focal neurological deficits. Cranial nerves intact. SKIN: Normal turgor and temperature. No breakdown, rash or nail changes noted. PSYCH: Normal insight and judgment. Data : 01/21/22 06:10 01/21/22 06:10 Micro: Microbiology 01/19/22 16:15 Gram Stain - Final Sputum - Expectorated Sputum Sputum Culture - Final A&P Assessment and plan (1) Congestive heart failure: HFrEF (LVEF=15%) -NICM, CIVID PCR negative, denies alcohol and substance abuse -started on coreg and losartan, will add imdur for now. -will transition to entresto if we can get him approved for MEDICAID/ financial assistance -He will benefit from life vest Status: Acute Qualifiers: Heart failure chronicity: acute on chronic Heart failure type: combined systolic and diastolic Qualified Code(s): I50.43 - Acute on chronic combined systolic (congestive) and diastolic (congestive) heart failure (2) Chest pain at rest: Status: Acute (3) Dilated cardiomyopathy: Status: Acute Plan Chronic active smoker Moderate to severe MR; PNA NSVT Attestations Medical Necessity Statement*: Needs hospital stay for CHF management Time Spent in Patient Care: 16 - 35 minutes Coding Level of Care Code Acute Director Internal Control for tayo Moreno Diagnoses Congestive heart failure I50.43 Heart failure chronicity: acute on chronic Heart failure type: combined systolic and diastolic Chest pain at rest R07.9 Dilated cardiomyopathy I42.0
--- NOTE | 2022-01-21 15:41 | PM.PN ---
Subjective Subjective: No complaints overnight. Sitting up in bed today. States today again he is feeling as if his lungs are filling up though he is able to sleep better. Denies any nausea, vomiting, headache. Blood pressure is elevated today. Medications: Reviewed: Yes Vitals/I&O/Wt Last Vital Signs Temp 99.4 F 01/21/22 12:00 Pulse 90 01/21/22 14:19 Resp 20 H 01/21/22 12:00 BP 176/128 01/21/22 12:00 Pulse Ox 94 01/21/22 12:00 O2 Del Method 01/21/22 12:00 O2 Flow Rate 1.5 01/21/22 12:00 01/21/22 01/21/22 01/21/22 06:59 14:59 22:59 Intake Total 200 / 1510 Balance 200 / 1510 Weight last 48 hrs Weight 87.362 kg Weight 87.18 kg Weight 89.811 kg Physical Exam Narrative: General: AO x3, sitting up in bed, 90 degrees, mild distress because of chest pain, on room air HEENT: PERRLA, pupils bilaterally equal and reactive Chest: Normal vesicular breath sounds, bilateral breath sounds equal, fine crackles present bilaterally lower zone CVS: S1-S2 regular, no murmurs, no tachycardia, no gallops, no rubs Abdomen: Soft, nontender, no organomegaly, bowel sounds present Neuro: No focal deficits, no facial deformity, AO x3, power 5/5 in all limbs Data : 01/21/22 06:10 01/21/22 06:10 Micro: Microbiology 01/19/22 16:15 Gram Stain - Final Sputum - Expectorated Sputum Sputum Culture - Final A&P Assessment and plan (1) Chest pain at rest: Status: Acute (2) Shortness of breath: Status: Acute (3) Congestive heart failure: Status: Acute Qualifiers: Heart failure type: combined systolic and diastolic Heart failure chronicity: acute on chronic Qualified Code(s): I50.43 - Acute on chronic combined systolic (congestive) and diastolic (congestive) heart failure (4) Pneumonia: Status: Suspected (5) Dilated cardiomyopathy: Status: Acute (6) Nonischemic cardiomyopathy: Status: Acute (7) Severe mitral valve regurgitation: Status: Acute Plan 51-year-old gentleman no significant past medical history other than being a chronic smoker presents to the ER because of worsening chest pain for last couple of weeks and symptoms suggestive of unstable angina. Chest pain: Post cardiac angiogram. Nonobstructive CAD. Most likely symptoms secondary to congestive heart failure. Echocardiogram results appreciated. Aspirin 81 mg daily. Stop statins. Stop nitro drip, full dose Lovenox. Nonischemic dilated cardiomyopathy: Mixed acute diastolic and systolic congestive heart failure: Shows an EF of 15%, global hypokinesia, moderate to severe mitral regurgitation. Could be secondary to untreated elevated chronic blood pressures versus secondary to chronic mitral regurgitation. Most likely patient will need a CHRIS as an outpatient for further quantification and characterization of mitral regurgitation. Lasix oral 40 mg, Coreg 12.5 mg twice daily, losartan 50 mg daily. Uptitrate keeping goal blood pressure of 140/90 mmHg while monitoring kidney functions. Given extensively low EF patient will need a LifeVest. Appreciate cardiology recommendations. Pneumonia less likely. We will stop antibiotics. Sputum culture sent results awaited. Analgesia: Tylenol every 6 hours as needed, morphine 2 mg every 4 hours as needed. Glycemic control: Not needed Nutrition: Cardiac diet. CODE STATUS: Full code. PUD prophylaxis: Protonix 40 mg IV daily. DVT prophylaxis: Lovenox 40 mg Continue with CSU care. Plan for the day: Uptitrate Coreg to 12.5 mg twice daily. Increase losartan to 50 mg daily. Will give extra dose of 6.25 mg Coreg and 25 mg losartan as patient has already received morning dose of his antihypertensives. Start on Lasix 40 mg oral daily. Monitor CMP daily. Appreciate cardiology recommendations. Discussed with case management regarding requirement of LifeVest as an outpatient. Attestations Medical Necessity Statement*: Requires further hospitalization for management of nonischemic dilated cardiomyopathy while heart failure medications and antihypertensives are adjusted Time Spent in Patient Care: Greater than 35 minutes Coding Level of Care Code Acute Content Manager for [facility] Fwd Diagnoses Chest pain at rest R07.9 Shortness of breath R06.02 Congestive heart failure I50.43 Heart failure type: combined systolic and diastolic Heart failure chronicity: acute on chronic Pneumonia J18.9 Dilated cardiomyopathy I42.0 Nonischemic cardiomyopathy I42.8 Severe mitral valve regurgitation I34.0
[2022-01-21] MEDS: pantoprazole 40 mg SDV IVP (16:02)
[2022-01-21] MEDS: isosorbide mononitrate ER 30 mg Tablet PO (17:25)
[2022-01-21] MEDS: morphine 4 mg/mL SDV 1 mL 2 MG IVP (21:52)
[2022-01-21] MEDS: ALPRAZolam 0.5 mg Tablet PO (21:52)
[2022-01-21] MEDS: FUROsemide 10 mg/mL SDV 2mL 20 MG IVP (21:53)
[2022-01-21] MEDS: hyDRALAzine 25 mg Tablet PO (21:54)
[2022-01-21] MEDS: carvedilol 12.5 mg Tablet PO (21:56)
--- NOTE | 2022-01-21 22:04 | ECG_ITS ---
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 Measurements Intervals [place] Rate: 77 P: 47 [place]: 189 QRS: 32 QRSD: 98 T: 83 QT: 413 QTc: 468 Interpretive Statements SINUS RHYTHM POSSIBLE LEFT ATRIAL ENLARGEMENT [-0.1mV P-WAVE IN V1/V2] LEFT VENTRICULAR HYPERTROPHY AND ST-T CHANGE [VOLTAGE CRITERIA PLUS ST/T ABNORMALITY] Compared to ECG 01/19/2022 16:14:12 No significant changes Electronically Signed On 01-22-2022 21:27:55 CDT by Elis Robles M.D. [email or web address]
[2022-01-22] VITALS (16 sets, daily range): BP systolic 108–157; BP diastolic 72–110; PULSE 60–80; RESP 15–25; TEMP 36.1–36.8; O2SAT 79–96
[2022-01-22 06:10] LABS: Alanine Aminotransferase 11 U/L (0-41); Albumin Level 3.5 g/dL (3.5-5.2); Alkaline Phosphatase 55 IU/L (40-130); Anion Gap 14.9 (5-19); Aspartate Amino Transferase 11 U/L (0-40); Blood Urea Nitrogen 23 mg/dL (6-20); Calcium 9.1 mg/dL (8.5-10.5); Carbon Dioxide 28 mmol/L (22-29); Chloride 103 mmol/L (98-107); Globulin 2.8 g/dL (1.3-4.6); Glucose 105 mg/dL (65-115); Osmolality Calculated 298 mOsm/kg (285-295); Potassium 3.9 mmol/L (3.5-5.1); Sodium 142 mmol/L (136-145); Total Bilirubin 0.4 mg/dL (0.15-1.2); Total Protein 6.3 g/dL (6.6-8.7)
[2022-01-22] MEDS: carvedilol 12.5 mg Tablet PO (08:53)
[2022-01-22] MEDS: isosorbide mononitrate ER 30 mg Tablet PO (08:53)
[2022-01-22] MEDS: FUROsemide 40 mg Tablet PO (08:54)
[2022-01-22] MEDS: losartan 50 mg Tablet PO (08:54)
[2022-01-22] MEDS: hyDRALAzine 25 mg Tablet PO (08:54)
[2022-01-22] MEDS: potassium chloride ER 20 mEq Tablet PO (08:54)
[2022-01-22] MEDS: aspirin 81 mg EC Tablet PO (08:54)
--- NOTE | 2022-01-22 09:23 | PM.PN ---
Subjective Medications: Reviewed: Yes Vitals/I&O/Wt Last Vital Signs Temp 98 F 01/22/22 04:00 Pulse 69 01/22/22 07:00 Resp 17 01/22/22 07:00 BP 135/104 01/22/22 08:54 Pulse Ox 96 01/22/22 08:00 O2 Del Method 01/22/22 08:00 O2 Flow Rate 4 01/22/22 04:00 01/21/22 01/22/22 01/22/22 22:59 06:59 14:59 Intake Total 500 / 500 Output Total 950 / 950 425 / 1375 Balance -450 / -450 -425 / -875 Weight last 48 hrs Weight 191 lb 12.8 oz Weight 192 lb 9.6 oz Physical Exam Narrative: GENERAL: Averagely built and averagely nourished in no acute distress HEENT: Extraocular movement intact. Pupils equal round reactive to light. No pallor or icterus. NECK: central trachea, + JVD, No carotid bruit. CARDIOVASCULAR SYSTEM: S1-S2 regular. apical systolic murmur+, No rubs. RESPIRATORY SYSTEM: Chest clear to auscultation except for bibasilar rales. No wheezes rhonchi heard. ABDOMEN: Soft, nontender and nondistended. Normal bowel sounds present. No hepatosplenomegaly appreciated. EXTREMITIES: No cyanosis or clubbing. No edema. No signs of chronic venous insufficiency. 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 No focal neurological deficits. Cranial nerves intact. SKIN: Normal turgor and temperature. No breakdown, rash or nail changes noted. PSYCH: Normal insight and judgment. Data : 01/21/22 06:10 01/22/22 05:21 Micro: Microbiology 01/19/22 16:15 Gram Stain - Final Sputum - Expectorated Sputum Sputum Culture - Final A&P Assessment and plan (1) Congestive heart failure: HFrEF (LVEF=15%) -NICM, CIVID PCR negative, denies alcohol and substance abuse -started on coreg and losartan, will add imdur and hydralalzine for now. -Plan to d/c imdur and hydralazine outpatient and uptitrate losartan, coreg and add aldactone. -will transition to [facility] if we can get him approved for MEDICAID/ financial assistance -He will benefit from life vest -Follow up in 1 week with Esha carrasco [facility] and for CHF management -Follow up in 4-6 weeks with . Status: Acute Qualifiers: Heart failure chronicity: acute on chronic Heart failure type: combined systolic and diastolic Qualified Code(s): I50.43 - Acute on chronic combined systolic (congestive) and diastolic (congestive) heart failure (2) Chest pain at rest: improved after diuresis Status: Acute (3) Dilated cardiomyopathy: Status: Acute Plan Chronic active smoker: counselled on smoking cessation Moderate to severe MR; PNA NSVT Attestations Medical Necessity Statement*: stable to be discharged home Time Spent in Patient Care: 16 - 35 minutes Coding Level of Care Code Acute Process Engineering Technician for [facility] Fwd Diagnoses Congestive heart failure I50.43 Heart failure chronicity: acute on chronic Heart failure type: combined systolic and diastolic Chest pain at rest R07.9 Dilated cardiomyopathy I42.0
--- NOTE | 2022-01-22 10:34 | PM.DCS ---
Discharge Providers Date of Admission: 01/19/22 14:34 Date of Discharge: January 22, 2022 Attending Provider at Admission: Mark Pimentel MD Attending Provider at Discharge: Mark Pimentel MD Consults: Cardiology: Dr. Jordan Diagnoses at Discharge Discharge Diagnosis (1) Congestive heart failure: Status: Acute Qualifiers: Heart failure type: combined systolic and diastolic Heart failure chronicity: acute on chronic Qualified Code(s): I50.43 - Acute on chronic combined systolic (congestive) and diastolic (congestive) heart failure (2) Chest pain at rest: Status: Acute (3) Dilated cardiomyopathy: Status: Acute Reason for Visit Reason for Visit: Chest Pain Hospital Course Hospital Course Ed Diallo is a 51 year old male with no segment past medical history, chronic smoker presents to the ER today because of left-sided retrosternal chest pain radiating to the left and jaw on and off for last 2 weeks on exertion getting relieved at rest but constant even at rest since today morning.? Pain associated with shortness of breath which gets worse on laying down flat along with chest heaviness.? Patient complaining of mild cough on and off denies any runny nose, fever, exposure to COVID-19, sick contact.? In the ER patient was started on a nitro patch which relieved chest pain at 4 hours but on examination patient continues to complain of mild chest pain. Blood work in the ER significant for a vitamin 15.9, hemoglobin of 14.7, sodium of 139, creatinine of 0.9, baseline troponin of 31, delta of -1 in 2 hours.? Chest x-ray done as below. EKG showing sinus tachycardia with frequent VPCs, LVH with ST-T changes, T wave depression in V3 to V6. Patient went to the hospital further evaluation and management. Echocardiogram was done which showed a new EF of 10 to 15% with moderate to severe eccentric MR, global LV hypokinesia. Cardiology was consulted. Patient underwent cardiac angiogram to rule out ischemic etiology. Cardiac angiogram showed normal coronary arteries. It is believed patient's symptoms are most likely because of nonischemic global dilated cardiomyopathy. Patient's hospitalization was complicated by uncontrolled resistant hypertension for which multiple antihypertensives were added. LifeVest is being arranged for the patient which is being difficult because of his insurance/self-pay status. Has been discharged in hemodynamically stable condition on multiple antihypertensives with advised to follow-up with Esha Doherty/cardiology nurse practitioner within next 1 week, Dr. Jordan within next 1 month. He is advised to to restrict his fluid intake to around 1500 to 2 L. He is advised to limit his sodium intake to less than 2 g. He is advised to abstain from smoking. Physical Exam Narrative: General: AO x3, sitting up in bed, 90 degrees, mild distress because of chest pain, on room air HEENT: PERRLA, pupils bilaterally equal and reactive Chest: Normal vesicular breath sounds, bilateral breath sounds equal, fine crackles present bilaterally lower zone CVS: S1-S2 regular, no murmurs, no tachycardia, no gallops, no rubs Abdomen: Soft, nontender, no organomegaly, bowel sounds present Neuro: No focal deficits, no facial deformity, AO x3, power 5/5 in all limbs Discharge Data Studies Completed and Pending Completed Studies During Hospitalization Category Date Time Status 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 echo complete* [id number] Urgent Ultrasound 01/19/22 14:29 Completed Radiology Impressions Chest X-Ray 01/19/22 09:51 IMPRESSION: 1. Bibasal interstitial infiltrates that may represent active pneumonia or chronic change. Possible small left pleural effusion. Venous Duplex 01/19/22 16:07 IMPRESSION: No evidence of deep vein thrombosis. Echocardiogram: CONCLUSIONS ?1. Moderately dilated left ventricle. Severely decreased left?ventricular systolic function. Left ventricular ejection?fraction is estimated at 15 %.? Severe global hypokinesis.? ?Abnormal diastolic dysfunction. ?2. Normal right ventricular size and systolic function. ?3. Moderate to severe mitral valve regurgitation. ?4.? No prior similar studies to compare. ?India Jordan MD ?(Electronically Signed) ?Final Date:? ? ? 19 January 2022 ? 15:58 Laboratory Results WBC 12.4 10^3/uL (4.0-10.0) H 01/21/22 06:10 RBC 4.45 10^6/uL (4.1-5.3) 01/21/22 06:10 Hgb 13.5 g/dL (11.7-16.6) 01/21/22 06:10 Hct 41.4 % (42.0-52.0) L 01/21/22 06:10 MCV 93.0 fl (80-94) 01/21/22 06:10 MCH 30.3 pg (28.0-34.0) 01/21/22 06:10 MCHC 32.6 g/dL (30.0-36.0) 01/21/22 06:10 RDW 13.2 % (12.1-15.1) 01/21/22 06:10 Plt Count 198 10^3/cmm (130-400) 01/21/22 06:10 MPV 10.5 fL (7.4-10.4) H 01/21/22 06:10 Neut % (Auto) 83.7 % 01/21/22 06:10 Lymph % (Auto) 9.5 % 01/21/22 06:10 [place] % (Auto) 5.2 % 01/21/22 06:10 Eos % (Auto) 1.0 % 01/21/22 06:10 Baso % (Auto) 0.2 % 01/21/22 06:10 Neut # (Auto) 10.38 10^3/uL (1.8-7.7) H 01/21/22 06:10 Lymph # (Auto) 1.2 10^3/uL (0.8-4.8) 01/21/22 06:10 [place] # (Auto) 0.6 10^3/uL (0.2-0.9) 01/21/22 06:10 Eos # (Auto) 0.1 10^3/uL (0.0-0.8) 01/21/22 06:10 Baso # (Auto) 0.0 10^3/uL (0.0-0.1) 01/21/22 06:10 Nucleated RBC % (auto) 0 % 01/21/22 06:10 Nucleated RBCs # 0.0 /100WBC 01/21/22 06:10 ESR 2 mm/hr (0-10) 01/19/22 15:28 D-Dimer 1.24 ug/mIFEU (0-0.59) H 01/19/22 15:28 Sodium 142 mmol/L (136-145) 01/22/22 05:21 Potassium 3.9 mmol/L (3.5-5.1) 01/22/22 05:21 Chloride 103 mmol/L (98-107) 01/22/22 05:21 Carbon Dioxide 28 mmol/L (22-29) 01/22/22 05:21 Anion Gap 14.9 (5-19) 01/22/22 05:21 BUN 23 mg/dL (6-20) H 01/22/22 05:21 Creatinine 1.1 mg/dL (0.7-1.2) 01/22/22 05:21 GFR Calculation 70.0 mL/min (90-130) L 01/22/22 05:21 Glucose 105 mg/dL (65-115) 01/22/22 05:21 Estimat Average Glucose 91 01/20/22 06:22 Hemoglobin A1c 4.8 % (4.0-6.0) 01/20/22 06:22 Calculated Osmolality 298 mOsm/kg (285-295) H 01/22/22 05:21 Calcium 9.1 mg/dL (8.5-10.5) 01/22/22 05:21 Phosphorus 3.0 mg/dL (2.5-4.5) 01/20/22 06:22 Magnesium 2.0 mg/dL (1.7-2.3) 01/20/22 06:22 Iron 58 ug/dL (59-158) L 01/19/22 11:09 TIBC 286 mcg/dl 01/19/22 11:09 % Saturation 20.2 % (20-50) 01/19/22 11:09 Unsat Iron Binding 228 ug/dL (112-347) 01/19/22 11:09 Total Bilirubin 0.4 mg/dL (0.15-1.2) 01/22/22 05:21 AST 11 U/L (0-40) 01/22/22 05:21 ALT 11 U/L (0-41) 01/22/22 05:21 Alkaline Phosphatase 55 IU/L (40-130) 01/22/22 05:21 Troponin T Baseline 31 ng/L (0-15) H 01/19/22 11:09 Troponin T 120 Minute 29.35 ng/L (0-15) H 01/19/22 11:50 Delta Troponin T -1.65 ABS# (0-10) L 01/19/22 11:50 Troponin T Hi Sens 6Hr 37.42 ng/L (0-15) H 01/19/22 15:28 Troponin T Hi Sens 6Hr Delta 6.42 ng/L (0-12) 01/19/22 15:28 C-Reactive Protein 10.0 mg/L (0.0-4.9) H 01/19/22 11:09 NT-Pro-B Natriuret Pep 4521 pg/mL (0-125) H 01/19/22 11:09 Total Protein 6.3 g/dL (6.6-8.7) L 01/22/22 05:21 Albumin 3.5 g/dL (3.5-5.2) 01/22/22 05:21 Globulin 2.8 g/dL (1.3-4.6) 01/22/22 05:21 Triglycerides 82 mg/dL (0-150) 01/20/22 06:22 Cholesterol 137 mg/dL (0-200) 01/20/22 06:22 LDL Cholesterol, Calc 85 mg/dL (50-129) 01/20/22 06:22 Total VLDL Cholesterol 16 mg/dL (0-30) 01/20/22 06:22 HDL Cholesterol 36 mg/dL (60-100) L 01/20/22 06:22 Cholesterol/HDL Ratio 3.81 mg/dL (1.0-5.00) 01/20/22 06:22 Vitamin B12 317 pg/mL (232-1245) 01/19/22 11:09 Folate 9.4 ng/mL (4.5-32.2) 01/19/22 15:28 Procalcitonin 0.06 ng/mL (0-0.5) 01/19/22 11:09 TSH 0.79 uIU/mL (0.27-4.20) 01/19/22 11:09 Urine Color Straw (Yellow) 01/19/22 15:03 Urine Appearance Clear (CLEAR) 01/19/22 15:03 Urine pH 5 (5-7) 01/19/22 15:03 Ur Specific [place] 1.005 (1.005-1.030) 01/19/22 15:03 Urine Protein Neg (Negative) 01/19/22 15:03 Urine Glucose (UA) Norm (Normal) 01/19/22 15:03 Urine Ketones 1+ (Negative) H 01/19/22 15:03 Urine Blood 2+ (Negative) H 01/19/22 15:03 Urine Nitrate Negative (Negative) 01/19/22 15:03 Urine Bilirubin Neg (Negative) 01/19/22 15:03 Urine Urobilinogen Norm mg/dL (Negative) 01/19/22 15:03 Ur Leukocyte Esterase Negative (Negative) 01/19/22 15:03 Urine RBC 0-4 /hpf (0-2) H 01/19/22 15:03 Urine WBC Rare /hpf (0-5) 01/19/22 15:03 Ur Squamous Epith Cells None /hpf (0-5) 01/19/22 15:03 Amorphous Sediment Not Reportable 01/19/22 15:03 Urine Bacteria Trace /hpf (NONE) 01/19/22 15:03 Urine Opiates Screen Negative ng/mL (Negative) 01/19/22 15:03 Ur Barbiturates Screen Negative ng/mL (Negative) 01/19/22 15:03 Ur Phencyclidine Scrn Negative ng/mL (Negative) 01/19/22 15:03 Ur Amphetamines Screen Negative ng/mL (Negative) 01/19/22 15:03 U Benzodiazepines Scrn Negative ng/mL (Negative) 01/19/22 15:03 Urine Cocaine Screen Negative ng/mL (Negative) 01/19/22 15:03 U Marijuana (THC) Screen Negative ng/mL (Negative) 01/19/22 15:03 Ethyl Alcohol < 10 mg/dL (0-10) 01/19/22 17:38 Coronavirus 229E (PCR) Not detected (NOT DETECT) 01/19/22 13:02 Influenza Type A Ag Negative (Negative) 01/19/22 14:44 Influenza Type B Ag Negative (Negative) 01/19/22 14:44 SARS-CoV-2 (PCR) Not detected (NOT DETECT) 01/19/22 13:02 Vitals Last Vital Signs Temp 96.9 F L 01/22/22 09:00 Pulse 75 01/22/22 09:00 Resp 21 H 01/22/22 09:00 BP 147/110 01/22/22 09:00 Pulse Ox 90 01/22/22 09:00 O2 Del Method 01/22/22 08:00 O2 Flow Rate 4 01/22/22 04:00 Discharge Plan Discharge Patient Disposition: Home Condition: Stable Prescriptions: New hydralazine 25 mg Tablet 25 mg PO TID Qty: 90 0RF aspirin 81 mg Tablet,Delayed Release (Dr/Ec) 81 mg PO DAILY Qty: 30 0RF potassium chloride [Klor-Con M20] 20 mEq Tablet,Er Particles/Crystals 20 meq PO DAILY Qty: 30 0RF furosemide 40 mg Tablet 40 mg PO DAILY@0800 Qty: 30 0RF carvedilol 12.5 mg Tablet 12.5 mg PO BID@0900,2100 Qty: 60 0RF losartan 50 mg Tablet 50 mg PO DAILY Qty: 30 0RF isosorbide mononitrate 30 mg Tablet Extended Release 24 Hr 30 mg PO DAILY Qty: 30 0RF Continued Vitamin C 500 mg Tablet Extended Release 500 mg PO DAILY Vitamin D3 25 mcg (1,000 unit) Capsule 25 mcg PO DAILY [id number] [id number] mg Tablet 1 tab PO DAILY Tylenol 325 mg Capsule 325 mg PO QID PRN (Reason: Pain) Discharge Orders: Discharge Order (Routine); Ordered 01/22/22 Ordered By: Mark Pimentel Referrals: [facility] [Provider Group] - 02/19/22 1:30 pm (You will have a new patient appointment with Dr. Jiménez at [facility] on February 19 at 1:30 pm. If you have any questions or need to reschedule please contact them at [phone].) Devon Treviño MD [Physician] - 01/27/22 11:15 am (You will have a hospital follow up with Dr. Treviño on January 27 at 11:15 am. If you have any questions or need to reschedule for any reason please contact them at [phone].) Esha Doherty FNP [Nurse Practitioner] - 1 week India Jordan MD [Physician] - 1 month Discharge Diet: Cardiac Discharge Activity: Resume usual activity and Increase activity as tolerated Patient Instructions: Opioid Safety Activity Restrictions/Additional Instructions: Follow-up with Esha Doherty/cardiology nurse practitioner within next 1 week, Dr. Jordan within next 1 month. He is advised to to restrict his fluid intake to around 1500cc to 2 L. He is advised to limit his sodium intake to less than 2 g. He is advised to abstain from smoking. Discharge Attestations Time Spent in Discharge Care*: greater than 30 min Specific Discharge Activities: educating patient, discussing with pcp/other providers, discussing with clinical case manager/social workers/dc planners, documenting/other paperwork and evaluating patient/reviewing data Time Spent in Smoking Cessation: more than 10 minutes Quality Metrics Clinical Quality Measures [ No reported AMI, CVA or VTE this stay] Coding Level of Care Code Acute g DC note Diagnoses Congestive heart failure I50.43 Heart failure type: combined systolic and diastolic Heart failure chronicity: acute on chronic Chest pain at rest R07.9 Dilated cardiomyopathy I42.0
--- NOTE | 2022-01-22 11:30 | PC.NURSE ---
Discharge orders put in and all appointments have been made. We are waiting on meds to beds to bring medications.
--- NOTE | 2022-01-22 13:09 | PC.NURSE ---
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 Pharmacy staff aware. Waiting on ride to arrive.
--- NOTE | 2022-01-22 14:26 | PC.NURSE ---
Pt was taken to personal vehicle at 1400. Pt tolerated well. All discharge instructions in hand.
== END 2022-01-22 14:00 | disposition home or self-care (01) | DRG 286 ==
LOC: ER 11:53 → MEDSURG 14:21 → ICU 01-20 05:38
PROVIDERS: Internal Medicine Cardiovascular Disease; Physician Assistant; Admitting Provider Student in an Organized Health Care Education/Training Program; Emergency Provider Family Medicine; Visit Provider Student in an Organized Health Care Education/Training Program
DX: I11.0 Hypertensive heart disease with heart failure (principal); I50.43 Acute on chronic combined systolic (congestive) and diastolic (congestive) heart failure; J18.9 Pneumonia, unspecified organism; I42.0 Dilated cardiomyopathy; I25.110 Atherosclerotic heart disease of native coronary artery with unstable angina pectoris; F17.210 Nicotine dependence, cigarettes, uncomplicated; I34.0 Nonrheumatic mitral (valve) insufficiency; Z20.822 Contact with and (suspected) exposure to COVID-19
CPT/HCPCS: 36415; 71045; 80053; 80061; 80306; 80307; 81001; 82607; 82746; 83036; 83540; 83550; 83735; 83880; 84100; 84145; 84443; 84484; 85025; 85378; 85651; 86140; 86403; 87070; 87205; 87449; 87635; 87804; 93005; 93306; 93454; 93970; 94664; 94760; 96360; 96365; 96367; 96372; 99152; 99285; C1769; C1887; C1894; C9113; J0456; J0696; J1644; J1650; J1940; J2250; J2270; J3010; J3490; J7030; J7050; Q0163; Q9967

== ENCOUNTER 2022-04-06 16:49 | Outpatient (CLI) | payer MEDICAID, SELFPAY ==
[2022-04-06 17:51] LABS: Anion Gap 10.1 (5-19); Blood Urea Nitrogen 14 mg/dL (6-20); Calcium 9.7 mg/dL (8.5-10.5); Carbon Dioxide 33 mmol/L (22-29); Chloride 100 mmol/L (98-107); Glomerular Filtration Rate 63.3 mL/min (90-130); Glucose 98 mg/dL (65-115); Magnesium 2.2 mg/dL (1.7-2.3); NT Pro B Type Natriuretic Pept 426 pg/mL (0-125); Osmolality Calculated 288 mOsm/kg (285-295); Potassium 4.1 mmol/L (3.5-5.1); Sodium 139 mmol/L (136-145)
== END 2022-04-06 16:50 | disposition home or self-care (01) ==
LOC: LAB 16:55
PROVIDERS: PCP Electrodiagnostic Medicine; Visit Provider Internal Medicine Cardiovascular Disease
DX: I34.0 Nonrheumatic mitral (valve) insufficiency (principal); I42.0 Dilated cardiomyopathy; I50.9 Heart failure, unspecified
CPT/HCPCS: 36415; 80048; 83735; 83880

== ENCOUNTER 2022-04-21 06:53 | Outpatient (CLI) | payer MEDICAID, SELFPAY ==
--- NOTE | 2022-04-21 07:00 | USCV_ITS ---
Ed Diallo Age: 51 Gender: M : 1970 Exam Date: 04/21/2022 07:01 Ordering Phys: India Jordan MD ([email or web address]) Technologist: Julien Bird [place]am [place] [facility] [place] Indication: cardiomyop BP: 143 / 82 HR: 65 Rhythm: Sinus Technical Quality: Adequate MEASUREMENTS (Male / Female) Normal Values 2D ECHO LV Diastolic Diameter PLAX 6.6 cm 4.2 - 5.9 / 3.9 - 5.3 cm LV Systolic Diameter PLAX 5.0 cm IVS Diastolic Thickness 1.3 cm 0.6 - 1.0 / 0.6 - 0.9 cm IVS Systolic Thickness 1.8 cm LVPW Diastolic Thickness 1.3 cm 0.6 - 1.0 / 0.6 - 0.9 cm LVPW Systolic Thickness 1.2 cm LVOT Diameter 2.4 cm LV Ejection Fraction 2D Teich 47.7 % LV Ejection Fraction MOD 2C 58.9 % LV Ejection Fraction 2C AL 58.1 % LA Diameter 3.9 cm IVC Diameter 1.5 cm M-MODE Aortic Annulus Diameter 3.8 cm LA Ao Ratio MM 1.0 MV E Point Septal Separation 2.9 cm FINDINGS Left Ventricle This is a limited two-dimensional examination without M-mode or Doppler. There is mild left ventricular enlargement. There is mild global hypokinesis without wall motion disturbance. The estimated ejection fraction is about 40%. Right Ventricle Normal right ventricular size. Right Atrium Normal right atrial size. Left Atrium Normal left atrial size. Mitral Valve Structurally normal mitral valve. Aortic Valve Structurally normal trileaflet aortic valve. Tricuspid Valve Structurally normal tricuspid valve. Pulmonic Valve Pulmonic valve not well visualized. Pericardium Normal pericardium without effusion. Aorta Normal ascending aorta dimension. IVC The inferior vena cava appears normal. CONCLUSIONS Limited echo with mild left ventricular enlargement and mild global hypokinesis, ejection fraction 40%. When compared to the previous echocardiogram done January 19 of this year the ejection fraction has improved significantly. Previously was noted at 15%. Dr. Ashok Schwartz MD (Electronically Signed) Final Date: 21 April 2022 14:23 S
== END 2022-04-21 06:54 | disposition home or self-care (01) ==
LOC: RAD 06:53
PROVIDERS: PCP Electrodiagnostic Medicine; Visit Provider Internal Medicine Cardiovascular Disease
DX: I42.0 Dilated cardiomyopathy (principal)
CPT/HCPCS: 93308

== ENCOUNTER 2022-04-24 16:52 | Outpatient (CLI) | payer MEDICAID, SELFPAY ==
[2022-04-24 18:14] LABS: Anion Gap 12.4 (5-19); Blood Urea Nitrogen 22 mg/dL (6-20); Calcium 9.8 mg/dL (8.5-10.5); Carbon Dioxide 31 mmol/L (22-29); Chloride 102 mmol/L (98-107); Glucose 93 mg/dL (65-115); Magnesium 2.1 mg/dL (1.7-2.3); NT Pro B Type Natriuretic Pept 1027 pg/mL (0-125); Osmolality Calculated 295 mOsm/kg (285-295); Potassium 4.4 mmol/L (3.5-5.1); Sodium 141 mmol/L (136-145)
== END 2022-04-24 16:53 | disposition home or self-care (01) ==
PROVIDERS: PCP Electrodiagnostic Medicine; Visit Provider Internal Medicine Cardiovascular Disease
DX: I11.0 Hypertensive heart disease with heart failure (principal); I50.9 Heart failure, unspecified; I34.0 Nonrheumatic mitral (valve) insufficiency; I42.0 Dilated cardiomyopathy; I47.20 Ventricular tachycardia, unspecified
CPT/HCPCS: 80048; 83735; 83880

== ENCOUNTER 2022-04-28 02:52 | Inpatient (IN) | payer MEDICAID, SELFPAY ==
[2022-04-28] VITALS (39 sets, daily range): BP systolic 105–180; BP diastolic 67–94; PULSE 59–97; RESP 8–20; TEMP 36.3–36.8; O2SAT 93–97
--- NOTE | 2022-04-28 03:05 | CTR_ITS ---
PROCEDURE INFORMATION: Exam: CT Abdomen And Pelvis With Contrast Exam date and time: 04/28/2022 3:18 AM Age: 51 years old Clinical indication: Abdominal pain; Localized; Right lower quadrant (rlq); Patient HX: C/O rlq pain with bloody stools; Additional info: Abd pain TECHNIQUE: Imaging protocol: Computed tomography of the abdomen and pelvis with contrast. Radiation optimization: All CT scans at this facility use at least one of these dose optimization techniques: automated exposure control; mA and/or kV adjustment per patient size (includes targeted exams where dose is matched to clinical indication); or iterative reconstruction. Contrast material: OMNI 350; Contrast volume: 80 ml; Contrast route: INTRAVENOUS (IV); COMPARISON: [place] [id number] 01/19/2022 4:47 PM RADIATION DOSE METRICS: Total DLP (mGy-cm): 640.43 FINDINGS: Liver: Normal. No mass. Gallbladder and bile ducts: Normal. No calcified stones. No ductal dilation. Pancreas: Normal. No ductal dilation. Spleen: Calcified splenic granulomas. Adrenal glands: Normal. No mass. Kidneys and ureters: Right renal simple cyst measuring >1.0 cm . Stomach and bowel: Unremarkable. No obstruction. No mucosal thickening. Appendix: No evidence of appendicitis. Intraperitoneal space: Unremarkable. No free air. No significant fluid collection. Vasculature: Calcification of the abdominal aorta and/or iliac arteries consistent with atherosclerotic vessel disease. Lymph nodes: Calcified left hilar nodes and/or mediastinal nodes and/or lung granulomas consistent with old granulomatous disease. Urinary bladder: Unremarkable as visualized. Reproductive: Unremarkable as visualized. Bones/joints: Unremarkable. No acute fracture. Soft tissues: Unremarkable. CT/CT abdomen pelvis w con* [id number] IMPRESSION: No acute findings. COMMENTS: Consistent with the [employer]'s Incidental Findings Committee white paper (J Am Jase Radiol 2018): Any incidental renal lesion less than 1 cm or classified as too small to characterize, or any incidental cystic renal lesion characterized as simple-appearing, is likely benign. No follow-up imaging is recommended for these lesions per consensus recommendations based on imaging criteria.
--- NOTE | 2022-04-28 03:05 | W.ED.ABDPA2 ---
HPI - Abdominal Pain General: Chief Complaint: Abdominal Pain Stated Complaint: ABD Pain\Pooping Blood\Dizzy Time Seen by Provider: 04/28/22 02:55 Source: patient Mode of arrival: ambulatory Limitations: no limitations History of Present Illness: 51-year-old male states that he has been having weakness today also dizziness he states that he has had multiple bright red bloody bowel movements he states he feels very dizzy and feels like his get a pass out denies any vomiting denies any chest pain. States he has had some abdominal cramping. Associated Symptoms: Reports hematochezia; Denies chills, diarrhea, dysuria, fever(s), nausea and vomiting Review of Systems Const: Reports: fatigue; Denies: fever(s), chills, body aches or change in appetite Eyes: Denies: blurry vision or eye discomfort ENMT: Denies: throat pain or dental pain Card: Denies: chest pain Resp: Denies: dyspnea GI: Reports: hematochezia; Denies: abdominal pain, nausea, vomiting or diarrhea : Denies: dysuria Musc: Denies: neck pain or back pain Skin/Breast: Denies: rash Neuro: Denies: headache(s) Psych: Denies: depression Beck/Lymph: Denies: easy bruising All/Imm: Denies: urticaria PFSH ED PFSH: Medical History HTN (hypertension) Mitral regurgitation NSVT (nonsustained ventricular tachycardia) Surgical History H/O hand surgery Social History Smoking and tobacco status: former smoker Alcohol intake: never Physical Exam Const: COMMON NORMALS: patient oriented x3 GENERAL APPEARANCE: ill appearing HENMT: COMMON NORMALS: normocephalic and atraumatic HEAD & SCALP: normocephalic and atraumatic Eye: COMMON NORMALS: Equal, round and reactive pupils present and EOMs intact bilaterally PUPIL: Yes Equal, round and reactive pupils present Neck/C-Spine: COMMON NORMALS: full ROM and supple Chest: COMMONS NORMALS: normal inspection of the chest and normal palpation of entire chest wall Resp: COMMON NORMALS: normal respiratory effort, No retractions, No use of accessory muscles and clear to auscultation bilaterally AUSCULTATION: clear to auscultation bilaterally Cardio: COMMON NORMALS: regular rate, regular rhythm and No murmurs present (Cardio) RATE: regular rate RHYTHM: regular rhythm GI: COMMON NORMALS: Normal to inspection, nondistended, normoactive bowel sounds present, Soft to palpation, non-tender and no masses PALPATION: Yes Soft to palpation OTHER: Rectal exam does show bright red blood that is Hemoccult positive Extremity: COMMON NORMALS: normal to inspection and full ROM Neuro: COMMON NORMALS: patient oriented x3, moves all extremities and no focal motor deficits Psych: COMMON NORMALS: mental status grossly normal, Normal thought process present and cooperative THOUGHT PROCESS: Normal thought process present Skin: COMMON NORMALS: no rashes or lesions noted and no wounds NARRATIVE SKIN EXAM: pale GENERAL SKIN EXAM: no rashes or lesions noted Course Vital Signs: Vital signs: Vital Signs Temperature 97.4 F L 04/28/22 02:56 Pulse Rate 66 04/28/22 05:30 Respiratory Rate 8 L 04/28/22 05:30 Blood Pressure 150/91 04/28/22 05:30 Pulse Oximetry 97 04/28/22 05:30 Oxygen Delivery Me thod 04/28/22 03:36 MDM - Abdominal Pain Medical Decision Making Patient presents here with lower GI bleed, some near syncope rectal exam here did show bright red blood he has had some lightheadedness with standing. CT here is normalt hemoglobin did drop slightly I spoke to hospitalist along with surgeon will admit at this time for observation Lab Data : 04/28/22 04:54 04/28/22 03:05 Labs/Radiology: Radiology Impressions Abdomen/Pelvis CT 04/28/22 03:05 IMPRESSION: No acute findings. COMMENTS: Consistent with the [employer]'s Incidental Findings Committee white paper (J Am Jase Radiol 2018): Any incidental renal lesion less than 1 cm or classified as too small to characterize, or any incidental cystic renal lesion characterized as simple-appearing, is likely benign. No follow-up imaging is recommended for these lesions per consensus recommendations based on imaging criteria. Laboratory Results WBC 11.0 10^3/uL (4.0-10.0) H 04/28/22 03:05 RBC 3.95 10^6/uL (4.1-5.3) L 04/28/22 03:05 Hgb 10.8 g/dL (11.7-16.6) L 04/28/22 04:54 Hct 33.9 % (42.0-52.0) L 04/28/22 04:54 MCV 93.9 fl (80-94) 04/28/22 03:05 MCH 30.6 pg (28.0-34.0) 04/28/22 03:05 MCHC 32.6 g/dL (30.0-36.0) 04/28/22 03:05 RDW 13.1 % (12.1-15.1) 04/28/22 03:05 Plt Count 226 10^3/cmm (130-400) 04/28/22 03:05 MPV 10.1 fL (7.4-10.4) 04/28/22 03:05 Neut % (Auto) 56.0 % 04/28/22 03:05 Lymph % (Auto) 33.5 % 04/28/22 03:05 Runnels % (Auto) 6.6 % 04/28/22 03:05 Eos % (Auto) 2.6 % 04/28/22 03:05 Baso % (Auto) 0.6 % 04/28/22 03:05 Neut # (Auto) 6.15 10^3/uL (1.8-7.7) 04/28/22 03:05 Lymph # (Auto) 3.7 10^3/uL (0.8-4.8) 04/28/22 03:05 Runnels # (Auto) 0.7 10^3/uL (0.2-0.9) 04/28/22 03:05 Eos # (Auto) 0.3 10^3/uL (0.0-0.8) 04/28/22 03:05 Baso # (Auto) 0.1 10^3/uL (0.0-0.1) 04/28/22 03:05 Nucleated RBC % (auto) 0 % 04/28/22 03:05 Nucleated RBCs # 0.0 /100WBC 04/28/22 03:05 PT 13.80 SECONDS (12.1-14.9) 04/28/22 03:05 INR 1.03 (0.8-1.2) 04/28/22 03:05 Sodium 140 mmol/L (136-145) 04/28/22 03:05 Potassium 4.8 mmol/L (3.5-5.1) 04/28/22 03:05 Chloride 104 mmol/L (98-107) 04/28/22 03:05 Carbon Dioxide 26 mmol/L (22-29) 04/28/22 03:05 Anion Gap 14.8 (5-19) 04/28/22 03:05 BUN 29 mg/dL (6-20) H 04/28/22 03:05 Creatinine 1.3 mg/dL (0.7-1.2) H 04/28/22 03:05 GFR Calculation 57.7 mL/min (90-130) L 04/28/22 03:05 Glucose 149 mg/dL (65-115) H 04/28/22 03:05 Calculated Osmolality 299 mOsm/kg (285-295) H 04/28/22 03:05 Calcium 9.3 mg/dL (8.5-10.5) 04/28/22 03:05 Total Bilirubin 0.2 mg/dL (0.15-1.2) 04/28/22 03:05 AST 13 U/L (0-40) 04/28/22 03:05 ALT 11 U/L (0-41) 04/28/22 03:05 Alkaline Phosphatase 56 U/L (40-130) 04/28/22 03:05 Troponin T Baseline 16 ng/L (0-15) H 04/28/22 03:05 Troponin T 120 Minute 19.93 ng/L (0-15) H 04/28/22 04:54 Delta Troponin T 3.93 ABS# (0-10) 04/28/22 04:54 Total Protein 6.3 g/dL (6.6-8.7) L 04/28/22 03:05 Albumin 4.1 g/dL (3.5-5.2) 04/28/22 03:05 Globulin 2.2 g/dL (1.3-4.6) 04/28/22 03:05 Lipase 39 U/L (13-60) 04/28/22 03:05 Blood Type B Positive 04/28/22 03:05 Rho(D) Type Positive 04/28/22 03:05 Antibody Screen Negative 04/28/22 03:05 Discharge Plan Discharge Patient Disposition: Placed in Observation Clinical Impression: Acute lower gastrointestinal bleeding, Near syncope Coding Level of Care Code ED Charge Account Clerk for Thomas Fwjulien Exam Comprehensive
--- NOTE | 2022-04-28 03:06 | ECG_ITS ---
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 Measurements Intervals [place] Rate: 62 P: 58 IN: 188 QRS: 73 QRSD: 104 T: 239 QT: 423 QTc: 431 Interpretive Statements SINUS RHYTHM LEFT VENTRICULAR HYPERTROPHY AND ST-T CHANGE [VOLTAGE CRITERIA PLUS ST/T ABNORMALITY] Compared to ECG 01/21/2022 22:04:01 No significant changes Electronically Signed On 04-28-2022 21:52:32 CDT by Elis Robles M.D. [email or web address]
[2022-04-28] MEDS: sodium chloride 0.9% 1,000 ML 999 ML IV (03:10)
[2022-04-28 03:12] LABS: Basophils # 0.1 10^3/uL (0.0-0.1); Basophils % 0.6 %; Eosinophils # 0.3 10^3/uL (0.0-0.8); Eosinophils % 2.6 %; Hematocrit 37.1 % (42.0-52.0); Hemoglobin 12.1 g/dL (11.7-16.6); Lymphocytes # 3.7 10^3/uL (0.8-4.8); Lymphocytes % 33.5 %; Mean Corpuscular HGB Conc 32.6 g/dL (30.0-36.0); Mean Corpuscular Hemoglobin 30.6 pg (28.0-34.0); Mean Corpuscular Volume 93.9 fl (80-94); Mean Platelet Volume 10.1 fL (7.4-10.4); Monocytes # 0.7 10^3/uL (0.2-0.9); Monocytes % 6.6 %; Neutrophils # 6.15 10^3/uL (1.8-7.7); Nucleated Red Blood Cells % 0 %; Platelet Count 226 10^3/cmm (130-400); Red Blood Count 3.95 10^6/uL (4.1-5.3); Red Cell Distribution Width 13.1 % (12.1-15.1)
[2022-04-28] MEDS: iohexol 350 mg/mL 500 mL Btl (per mL) IV (03:20)
[2022-04-28 03:26] LABS: INR 1.03 (0.8-1.2)
[2022-04-28 03:32] LABS: Troponin(5th) Baseline 16 ng/L (0-15)
[2022-04-28 03:33] LABS: Alanine Aminotransferase 11 U/L (0-41); Albumin Level 4.1 g/dL (3.5-5.2); Alkaline Phosphatase 56 U/L (40-130); Anion Gap 14.8 (5-19); Aspartate Amino Transferase 13 U/L (0-40); Blood Urea Nitrogen 29 mg/dL (6-20); Calcium 9.3 mg/dL (8.5-10.5); Carbon Dioxide 26 mmol/L (22-29); Chloride 104 mmol/L (98-107); Globulin 2.2 g/dL (1.3-4.6); Glomerular Filtration Rate 57.7 mL/min (90-130); Glucose 149 mg/dL (65-115); Lipase 39 U/L (13-60); Osmolality Calculated 299 mOsm/kg (285-295); Potassium 4.8 mmol/L (3.5-5.1); Sodium 140 mmol/L (136-145); Total Bilirubin 0.2 mg/dL (0.15-1.2); Total Protein 6.3 g/dL (6.6-8.7)
[2022-04-28 03:43] LABS: Creatinine Clr Calc Pharmacy 76.6682
--- NOTE | 2022-04-28 04:52 | ECG_ITS ---
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 Measurements Intervals [place] Rate: 59 P: 64 KS: 191 QRS: 71 QRSD: 101 T: 269 QT: 416 QTc: 414 Interpretive Statements SINUS BRADYCARDIA WITH SINUS ARRHYTHMIA ST DEVIATION AND MODERATE T-WAVE ABNORMALITY, CONSIDER LATERAL ISCHEMIA [-0.1+ mV T-WAVE IN I/aVL/V5/V6] ST DEVIATION AND MODERATE T-WAVE ABNORMALITY, CONSIDER INFERIOR ISCHEMIA [-0.1+ mV T-WAVE IN II/aVF] Compared to ECG 04/28/2022 03:06:58 T-wave abnormality now present Possible ischemia now present Sinus rhythm no longer present Left ventricular hypertrophy no longer present ST (T wave) deviation no longer present Electronically Signed On 04-28-2022 21:43:11 CDT by Elis Robles M.D. [email or web address] - [facility], [id number]
[2022-04-28 05:03] LABS: Hematocrit 33.9 % (42.0-52.0); Hemoglobin 10.8 g/dL (11.7-16.6)
[2022-04-28 05:33] LABS: Troponin 5 2HR 19.93 ng/L (0-15)
[2022-04-28 05:37] LABS: Troponin 5 2HR Delta 3.93 ABS# (0-10)
--- NOTE | 2022-04-28 08:00 | P.HP_ITS ---
Providers/Chief Complaint Admitting Physician: Mayra Leong MD Primary Care Provider: Lex Vang DO Chief Complaint: ABD Pain\Pooping Blood\Dizzy History of Present Illness Ed Diallo is a 51 year old male with a past medical history of nonischemic cardiomyopathy, most recent EF of 40% who presents with acute onset of bright red bleeding per rectum which started at around 1 AM last night. Patient states he went to get up to the bathroom, had some abdominal pain in the right flank, noticed jackelyn blood and diarrhea. Niece estimates he had 5-10 episodes, each time amount of blood exceeded 2 cups per his estimate. He reportedly passed out at home, when he came around he found his dad trying to wake him up. Was brought here to the emergency room where initial hemoglobin was noted to be 12.1, and subsequent evaluation it returned at 10.8. He has remained hemodynamically stable though reports feeling lightheaded intermittently. He has no past history of similar complaints in the past. No past history of hemorrhoids. No known history of diverticulosis. He has never had a colonoscopy in the past. No personal or family history of colon cancer. CT of his abdomen and pelvis did not show any acute pathology. Review of Systems General: Reports: 10 or more systems reviewed and unremarkable except in HPI and below Const: Denies: fever(s), chills or body aches Eyes: Denies: change in vision, blurry vision or photophobia ENMT: Reports: hoarseness; Denies: throat pain, enlarged tonsils, odynophagia or nasal congestion Card: Denies: chest pain, palpitations, irregular heart rhythm, edema, swelling of feet/ankles, lightheadedness, pre-syncope, dyspnea on exertion or orthopnea Resp: Denies: dyspnea, productive cough, non-productive cough, wheezing, stridor, pain on inspiration, change in phlegm color, hemoptysis or chest congestion GI: Denies: abdominal pain, nausea, vomiting, hematemesis, coffee ground emesis, dysphagia, heartburn, diarrhea, constipation, GI cramping, change in sto ol character, hematochezia or melena : Denies: flank pain, dysuria, urinary frequency, urinary urgency, urinary hesitancy or hematuria Musc: Denies: neck pain, back pain, extremity pain, joint swelling, joint warmth or deformity Neuro: Denies: headache(s), numbness in extremities, weakness in extremities, sensory changes, difficulty walking, frequent falls, dizziness, vertigo, behavioral changes, Slurred speech present or seizure-like activity Psych: Denies: anxiety, depression, suicidal ideation or homicidal ideation Endo: Denies: polyuria, polydipsia, tired all the time, cold intolerance or hot flashes Beck/Lymph: Denies: easy bruising or easy bleeding Medications/Allergies Home Medications Medication Instructions Recorded Confirmed Last Taken Type acetaminophen 325 mg capsule 325 mg PO QID PRN Pain 01/19/22 01/29/22 Unknown History (Tylenol) ascorbic acid (vitamin C) 500 mg 500 mg PO DAILY 01/19/22 01/29/22 01/18/22 History tablet,extended release (Vitamin C ER) [id number] 333 mg-133 1 tab PO DAILY 01/19/22 01/29/22 01/18/22 History mg-5 mg tablet cholecalciferol (vitamin D3) 25 25 mcg PO DAILY 01/19/22 01/29/22 01/18/22 History mcg (1,000 unit) capsule (Vitamin D3) aspirin 81 mg tablet,delayed 81 mg PO DAILY #30 tabs 02/16/22 Unknown Rx release carvedilol 12.5 mg tablet 12.5 mg PO BID@0900,2100 #180 tabs 03/16/22 03/16/22 Unknown Rx miscellaneous medical supply #1 ea 03/16/22 03/16/22 Unknown Rx (Blood Pressure Cuff) naproxen 375 mg tablet 375 mg PO BID PRN 03/16/22 Unknown History potassium chloride 20 mEq 20 meq PO DAILY #90 tabs 03/16/22 03/16/22 Unknown Rx tablet,extended release(part/cryst) (Klor-Con M) losartan 50 mg tablet 75 mg PO DAILY #135 tabs 04/20/22 Unknown Rx spironolactone 25 mg tablet 25 mg PO DAILY #30 tabs 04/20/22 Unknown Rx furosemide 40 mg tablet 20 mg PO DAILY@0800 #90 tabs 04/27/22 Unknown Rx Allergies Allergy/AdvReac Type Severity Reaction Status Date / Time No Known Allergies Allergy Verified 01/29/22 13:07 PFSH Acute PFSH: Medical History HTN (hypertension) Mitral regurgitation NSVT (nonsustained ventricular tachycardia) Surgical History H/O hand surgery Social History Smoking and tobacco status: former smoker Alcohol intake: never Vitals/I&O/Wt Last Vital Signs Temp 97.4 F L 04/28/22 02:56 Pulse 66 04/28/22 05:43 Resp 8 L 04/28/22 05:43 BP 150/91 04/28/22 05:43 Pulse Ox 97 04/28/22 05:43 O2 Del Method 04/28/22 06:36 04/27/22 04/28/22 04/28/22 22:59 06:59 14:59 Intake Total 1000 / 1000 Balance 1000 / 1000 Weight last 48 hrs Weight 89.811 kg Physical Exam Narrative: General: No acute distress, AO x3 HEENT: PERRLA, pupils bilaterally equal and reactive, pallors not present Chest: Normal vesicular breath sounds, no added sounds, equal good air entry bilaterally CVS: S1-S2 regular, no murmurs, no tachycardia, no gallops, no rubs Abdomen: Soft, nontender, no organomegaly, bowel sounds present Neuro: No focal deficits, no facial deformity, AO x3, power 5/5 in all limbs Data : 04/28/22 04:54 04/28/22 03:05 A&P Assessment and plan (1) Acute lower gastrointestinal bleeding: Patient presenting with acute onset bright red bleeding per rectum, suspected lower GI bleeding. Hemoglobin 12.1 upon admission, 10.8 on subsequent check. Suspect some degree of hemodilution but given he feels light headed and had several episodes of bleeding, may be sales and marketing representative of true blood loss. Check H&H every 8 hrs differentials are hemorrhoidal bleeding, diverticular bleeding Suregry consulted protonix 40mg iv q12h IVF NS @ 75 cc/hr Attestations Medical Necessity Statement*: anticipate >2 midnight admission for close hb monitoring, surgery assessment, possible colonoscopy Coding Level of Care Code Acute Warp Tier for [facility] Fwjulien Diagnoses Acute lower gastrointestinal bleeding K92.2
[2022-04-28] MEDS: sodium chloride 0.9% 1,000 ML 75 ML IV ×2 (08:23→20:49)
[2022-04-28] MEDS: pantoprazole 40 mg SDV IVP ×2 (08:23→20:43)
[2022-04-28 08:50] LABS: Hematocrit 34.9 % (42.0-52.0)
--- NOTE | 2022-04-28 09:34 | PM.MISC ---
Miscellaneous Note Note: Patient is stating that he had a bowel movement at 2:00 again had syncopal event Currently hemodynamically stable, hemoglobin 11 no active bright bleed per rectum General surgery has been consulted He never has had colonoscopy before Lives with his parents Does not work Awake and alert Hemodynamically stable Abdomen soft no signs of peritonitis slight tenderness right lower quadrant Otherwise abdomen soft bowel sound present Awake and alert nonfocal neuro exam Currently on room air We will keep him n.p.o. until he is evaluated on the surgery No previous colonoscopies Patient stating that he does not take any NSAIDs No history of hemorrhoids or diverticulosis No coagulopathy BRITTNEY could be related to dehydration Continue IV fluids History of nonischemic cardiomyopathy EF 40% Inpatient versus outpatient colonoscopy
[2022-04-28 10:06] LABS: Troponin 5 6HR 16.27 ng/L (0-15)
[2022-04-28 10:09] LABS: Troponin 5 6HR Delta 0.27 ng/L (0-12)
[2022-04-28] MEDS: carvedilol 12.5 mg Tablet PO ×2 (10:32→20:42)
[2022-04-28] MEDS: acetaminophen 325 mg Tablet 650 MG PO (10:34)
--- NOTE | 2022-04-28 12:00 | PM.CONSULT ---
Providers/Reason For Consult Consulting Physician/Specialty*: Dr. Colin Mcpherson DO/General surgery Reason for Consult*: Bright red blood per rectum Attending Physician: Rahul Kelly MD Primary Care Provider: Lex Vang DO History of Present Illness History of Present Illness Ed Diallo is a 51 year old male, who has never had a colonoscopy, presented to the hospital with a 1 day history of bright red blood per rectum. He reports that about 1 AM he started having bright red blood in his bowel movements. This happened 5-10 times and caused a syncopal event. He reports that he has been lightheaded. He reports that he has some right flank pain which is mild and worsened with movement. Sitting still makes it better. Denies any nausea or vomiting. Denies any family history of colon cancer. Review of Systems General: Reports: 10 or more systems reviewed and unremarkable except in HPI and below Medications/Allergies Home Medications Medication Instructions Recorded Confirmed Last Taken Type cholecalciferol (vitamin D3) 25 25 mcg PO DAILY@12 01/19/22 04/28/22 01/18/22 History mcg (1,000 unit) capsule (Vitamin D3) carvedilol 12.5 mg tablet 12.5 mg PO BID@0900,2100 #180 tabs 03/16/22 04/28/22 Unknown Rx miscellaneous medical supply #1 ea 03/16/22 04/28/22 Unknown Rx (Blood Pressure Cuff) naproxen 375 mg tablet 375 mg PO BID PRN Pain 03/16/22 04/28/22 Unknown History furosemide 40 mg tablet 20 mg PO DAILY@0800 #90 tabs 04/27/22 04/28/22 Unknown Rx acetaminophen 500 mg tablet 1,000 mg PO Q4H PRN Pain 04/28/22 04/28/22 Unknown History ascorbic acid (vitamin C) 500 mg 500 mg PO DAILY@12 04/28/22 04/28/22 Unknown History tablet (Vitamin C) aspirin 81 mg tablet,delayed 81 mg PO QAM 04/28/22 04/28/22 Unknown History release losartan 50 mg tablet 75 mg PO QAM 04/28/22 04/28/22 Unknown History magnesium oxide 400 mg PO DAILY@12 04/28/22 04/28/22 Unknown History omega-3 fatty acids-fish oil 684 1 cap PO EVERY OTHER DAY 04/28/22 04/28/22 Unknown History mg-1,200 mg capsule,delayed release potassium chloride 20 mEq 20 meq PO QAM 04/28/22 04/28/22 Unknown History tablet,extended release(part/cryst) (Klor-Con M) spironolactone 25 mg tablet 25 mg PO QAM 04/28/22 04/28/22 Unknown History Allergies Allergy/AdvReac Type Severity Reaction Status Date / Time No Known Allergies Allergy Verified 04/28/22 08:56 Current Medications Generic Name Dose Route Start Last Admin Trade Name Abebe PRN Reason Stop Dose Admin Acetaminophen 650 mg 04/28/22 07:55 04/28/22 10:34 Acetaminophen 325 Mg Tablet PO 650 mg Q6H PRN Administration Mild/Mod Pain Or Temp >/= 101 Carvedilol 12.5 mg 04/28/22 09:40 04/28/22 10:32 Carvedilol 12.5 Mg Tablet PO 12.5 mg BID@0900,2100 AYUSH Administration Sodium Chloride 1,000 mls @ 75 mls/hr 04/28/22 08:00 04/28/22 08:23 Sodium Chloride 0.9% IV 75 mls/hr .[id number] AYUSH Administration Pantoprazole Sodium 40 mg 04/28/22 08:00 04/28/22 08:23 Pantoprazole 40 Mg Sdv IVP 40 mg Q12H AYUSH Administration PFSH Acute PFSH: Medical History HTN (hypertension) Mitral regurgitation NSVT (nonsustained ventricular tachycardia) Surgical History H/O hand surgery Social History Smoking and tobacco status: former smoker Alcohol intake: never Vitals/I&O/Wt Last Vital Signs Temp 97.4 F L 04/28/22 02:56 Pulse 97 04/28/22 08:00 Resp 16 04/28/22 08:00 BP 129/84 04/28/22 08:00 Pulse Ox 97 04/28/22 08:00 O2 Del Method 04/28/22 06:36 04/27/22 04/28/22 04/28/22 22:59 06:59 14:59 Intake Total 1000 / 1000 Balance 1000 / 1000 Weight last 48 hrs Weight 198 lb Physical Exam Narrative: General : Patient is well developed , no acute distress, oriented x3 Head : Normal cephalic, a-traumatic. Ears : Pinnae and external canal are normal. Hearing is normal. Eyes : PERRLA, Sclera and injection are normal. No conjunctival discharge. Nose : Mucous membranes are without erythema. Throat : buccal mucosa is normal, gums are without significant recession or hypertrophy. Lungs : Equal chest rise bilaterally, no use of accessory muscles, trachea is midline. Cor : Rate and rhythm are normal. Abdomen : Soft, ND, very mild right flank tenderness, no g/r/m Extremities : No edema, no cyanosis or clubbing, dorsalis pedis pulses are present bilaterally, non-tender to palpation of calves. Upper extremities are normal bilaterally. Back : non-tender to palpation, no CVA tenderness. Neuro : CN II - XII intact, Upper and lower extremities have equal and full strength Data : 04/28/22 08:36 04/28/22 03:05 A&P Assessment and plan (1) Acute lower gastrointestinal bleeding: Plan Bowel prep with GoLytely Clear liquids N.p.o. after midnight To endoscopy tomorrow EGD Colonoscopy The risks and benefits of the procedure, including bleeding, infection, intestinal perforation requiring surgery, missed lesion, or explained to the patient. He is understanding of the risks and wishes to proceed. Medical management per hospitalist Thank you for this consultation Coding Level of Care Code Acute Controls Project Engineer for tayo Moreno Diagnoses Acute lower gastrointestinal bleeding K92.2
[2022-04-28] MEDS: morphine 4 mg/mL SDV 1 mL 2 MG IVP ×2 (12:08→20:44)
[2022-04-28] MEDS: peg /e-lyte soln 4,000 mL Btl 4000 ML PO (13:10)
--- NOTE | 2022-04-28 17:53 | PC.NURSE ---
Patient has drank his entire bowel prep and has had multiple bowel movements.
[2022-04-28 18:37] LABS: Hematocrit 32.9 % (42.0-52.0); Hemoglobin 10.6 g/dL (11.7-16.6)
[2022-04-28 23:26] LABS: Hematocrit 29.1 % (42.0-52.0); Hemoglobin 9.2 g/dL (11.7-16.6)
[2022-04-29] VITALS (9 sets, daily range): BP systolic 108–185; BP diastolic 55–103; PULSE 63–94; RESP 16–18; TEMP 36.5–37; O2SAT 92–98
[2022-04-29] MEDS: morphine 4 mg/mL SDV 1 mL 2 MG IVP (04:07)
[2022-04-29 05:09] LABS: Basophils # 0.1 10^3/uL (0.0-0.1); Basophils % 1.1 %; Eosinophils # 0.2 10^3/uL (0.0-0.8); Eosinophils % 4.2 %; Hematocrit 29.1 % (42.0-52.0); Hemoglobin 9.5 g/dL (11.7-16.6); Mean Corpuscular HGB Conc 32.6 g/dL (30.0-36.0); Mean Corpuscular Hemoglobin 30.3 pg (28.0-34.0); Mean Corpuscular Volume 92.7 fl (80-94); Mean Platelet Volume 10.8 fL (7.4-10.4); Monocytes # 0.5 10^3/uL (0.2-0.9); Monocytes % 8.7 %; Neutrophils # 2.57 10^3/uL (1.8-7.7); Neutrophils % 48.8 %; Nucleated Red Blood Cells % 0 %; Platelet Count 174 10^3/cmm (130-400); Red Blood Count 3.14 10^6/uL (4.1-5.3); Red Cell Distribution Width 13.2 % (12.1-15.1); White Blood Count 5.3 10^3/uL (4.0-10.0)
[2022-04-29 05:37] LABS: Alanine Aminotransferase 10 U/L (0-41); Albumin Level 3.8 g/dL (3.5-5.2); Alkaline Phosphatase 45 U/L (40-130); Aspartate Amino Transferase 14 U/L (0-40); Blood Urea Nitrogen 13 mg/dL (6-20); Calcium 8.3 mg/dL (8.5-10.5); Carbon Dioxide 29 mmol/L (22-29); Chloride 106 mmol/L (98-107); Creatinine Clr Calc Pharmacy 99.6687; Globulin 1.9 g/dL (1.3-4.6); Glomerular Filtration Rate 78.2 mL/min (90-130); Glucose 94 mg/dL (65-115); Osmolality Calculated 294 mOsm/kg (285-295); Sodium 142 mmol/L (136-145); Total Bilirubin 0.4 mg/dL (0.15-1.2); Total Protein 5.7 g/dL (6.6-8.7)
[2022-04-29 05:53] LABS: Anion Gap 11.8 (5-19); Potassium 4.8 mmol/L (3.5-5.1)
--- NOTE | 2022-04-29 07:03 | PC.NURSE ---
Report given to Norma ZEPEDA at this time
[2022-04-29] MEDS: pantoprazole 40 mg SDV IVP (08:47)
[2022-04-29] MEDS: hyDRALAzine 20 mg/mL INJ 1 mL 10 MG IVP ×2 (08:47→09:36)
--- NOTE | 2022-04-29 08:51 | PM.DCS ---
Discharge Providers Date of Admission: 04/28/22 05:29 Date of Discharge: April 29, 2022 Attending Provider at Admission: Mayra Leong MD Attending Provider at Discharge: Rahul Kelly MD Primary Care Provider: Lex Vang DO Diagnoses at Discharge Discharge Diagnosis (1) Acute lower gastrointestinal bleeding: Status: Acute Reason for Visit Reason for Visit: ABD Pain\Pooping Blood\Dizzy Hospital Course Hospital Course 48-year-old male who cardioischemia nonischemic cardiomyopathy, this with his parents, presented after 1 episode of bright red per rectum and vasovagal syncope. Hemoglobin remained stable during hospitalization, Dr. Mcpherson prepped him for colonoscopy, He remained hemodynamically stable, he was hypertensive and required IV hydralazine intermittently no recurrence of hematochezia during hospitalization. CT abdomen pelvis unremarkable Patient has duodenitis, hemorrhoids, diverticulosis We will give him omeprazole 12-week regimen, his single episode of bleeding/hematochezia most likely is related to hemorrhoids and diverticulitar bleed Naproxen to be discontinued, adding omeprazole Patient has finished using his LifeVest, his EF has improved from 15% to 40% for nonischemic cardiomyopathy. Physical Exam Narrative: Hemodynamically stable Euvolemic Abdomen soft Awake and alert No signs of congestive heart failure Doing well on room air Discharge Data Studies Completed and Pending Completed Studies During Hospitalization Category Date Time Status CT abdomen pelvis w con* [id number] Stat Cat Scan 04/28/22 03:05 Completed Radiology Impressions Abdomen/Pelvis CT 04/28/22 03:05 IMPRESSION: No acute findings. COMMENTS: Consistent with the [employer]'s Incidental Findings Committee white paper (J Am Jase Radiol 2018): Any incidental renal lesion less than 1 cm or classified as too small to characterize, or any incidental cystic renal lesion characterized as simple-appearing, is likely benign. No follow-up imaging is recommended for these lesions per consensus recommendations based on imaging criteria. Laboratory Results WBC 5.3 10^3/uL (4.0-10.0) 04/29/22 04:31 RBC 3.14 10^6/uL (4.1-5.3) L 04/29/22 04:31 Hgb 9.5 g/dL (11.7-16.6) L 04/29/22 04:31 Hct 29.1 % (42.0-52.0) L 04/29/22 04:31 MCV 92.7 fl (80-94) 04/29/22 04:31 MCH 30.3 pg (28.0-34.0) 04/29/22 04:31 MCHC 32.6 g/dL (30.0-36.0) 04/29/22 04:31 RDW 13.2 % (12.1-15.1) 04/29/22 04:31 Plt Count 174 10^3/cmm (130-400) 04/29/22 04:31 MPV 10.8 fL (7.4-10.4) H 04/29/22 04:31 Neut % (Auto) 48.8 % 04/29/22 04:31 Lymph % (Auto) 37.0 % 04/29/22 04:31 Gladwin % (Auto) 8.7 % 04/29/22 04:31 Eos % (Auto) 4.2 % 04/29/22 04:31 Baso % (Auto) 1.1 % 04/29/22 04:31 Neut # (Auto) 2.57 10^3/uL (1.8-7.7) 04/29/22 04:31 Lymph # (Auto) 2.0 10^3/uL (0.8-4.8) 04/29/22 04:31 Gladwin # (Auto) 0.5 10^3/uL (0.2-0.9) 04/29/22 04:31 Eos # (Auto) 0.2 10^3/uL (0.0-0.8) 04/29/22 04:31 Baso # (Auto) 0.1 10^3/uL (0.0-0.1) 04/29/22 04:31 Nucleated RBC % (auto) 0 % 04/29/22 04:31 Nucleated RBCs # 0.0 /100WBC 04/29/22 04:31 PT 13.80 SECONDS (12.1-14.9) 04/28/22 03:05 INR 1.03 (0.8-1.2) 04/28/22 03:05 Sodium 142 mmol/L (136-145) 04/29/22 04:31 Potassium 4.8 mmol/L (3.5-5.1) 04/29/22 04:31 Chloride 106 mmol/L (98-107) 04/29/22 04:31 Carbon Dioxide 29 mmol/L (22-29) 04/29/22 04:31 Anion Gap 11.8 (5-19) 04/29/22 04:31 BUN 13 mg/dL (6-20) 04/29/22 04:31 Creatinine 1.0 mg/dL (0.7-1.2) 04/29/22 04:31 GFR Calculation 78.2 mL/min (90-130) L 04/29/22 04:31 Glucose 94 mg/dL (65-115) 04/29/22 04:31 Calculated Osmolality 294 mOsm/kg (285-295) 04/29/22 04:31 Calcium 8.3 mg/dL (8.5-10.5) L 04/29/22 04:31 Total Bilirubin 0.4 mg/dL (0.15-1.2) 04/29/22 04:31 AST 14 U/L (0-40) 04/29/22 04:31 ALT 10 U/L (0-41) 04/29/22 04:31 Alkaline Phosphatase 45 U/L (40-130) 04/29/22 04:31 Troponin T Baseline 16 ng/L (0-15) H 04/28/22 03:05 Troponin T 120 Minute 19.93 ng/L (0-15) H 04/28/22 04:54 Delta Troponin T 3.93 ABS# (0-10) 04/28/22 04:54 Troponin T Hi Sens 6Hr 16.27 ng/L (0-15) H 04/28/22 09:36 Troponin T Hi Sens 6Hr Delta 0.27 ng/L (0-12) 04/28/22 09:36 Total Protein 5.7 g/dL (6.6-8.7) L 04/29/22 04:31 Albumin 3.8 g/dL (3.5-5.2) 04/29/22 04:31 Globulin 1.9 g/dL (1.3-4.6) 04/29/22 04:31 Lipase 39 U/L (13-60) 04/28/22 03:05 Blood Type B Positive 04/28/22 03:05 Rho(D) Type Positive 04/28/22 03:05 Antibody Screen Negative 04/28/22 03:05 Vitals Last Vital Signs Temp 98.3 F 04/29/22 07:34 Pulse 70 04/29/22 07:34 Resp 18 04/29/22 04:07 BP 185/103 04/29/22 07:34 Pulse Ox 96 04/29/22 07:34 O2 Del Method 04/29/22 04:00 Discharge Plan Discharge Patient Disposition: Home Condition: Stable Prescriptions: New omeprazole 20 mg capsule,delayed release(DR/EC) 20 mg PO BID 84 Days Qty: 168 0RF Continued carvedilol 12.5 mg tablet 12.5 mg PO BID@0900,2100 Qty: 180 3RF (DME) Blood Pressure Cuff Misc See Rx Instructions .Route Qty: 1 0RF Rx Instructions: As directed furosemide 40 mg tablet 20 mg PO DAILY@0800 Qty: 90 3RF cholecalciferol (vitamin D3) [Vitamin D3] 25 mcg (1,000 unit) Capsule 25 mcg PO DAILY@12 Tylenol Ex Str Rapid Release 500 mg Tablet 1,000 mg PO Q4H PRN (Reason: Pain) Vitamin C 500 mg Tablet 500 mg PO DAILY@12 [place]land 3 Fish Oil 684-1,200 mg Capsule,Delayed Release(Dr/Ec) 1 cap PO EVERY OTHER DAY magnesium oxide 400 mg magnesium Tablet 400 mg PO DAILY@12 losartan 50 mg tablet 75 mg PO QAM spironolactone 25 mg tablet 25 mg PO QAM Klor-Con M20 20 mEq tablet,ER particles/crystals 20 meq PO QAM Held aspirin 81 mg tablet,delayed release (DR/EC) 81 mg PO QAM Hold Instructions: Resume on 04/29/22. Discontinued naproxen 375 mg tablet 375 mg PO BID PRN (Reason: Pain) Referrals: Lex Vang DO [Primary Care Provider] - Patient Instructions: GI Discharge Instructions, Opioid Safety Discharge Attestations Time Spent in Discharge Care*: less than 30 min Quality Metrics Clinical Quality Measures [ No reported AMI, CVA or VTE this stay] Coding Level of Care Code Acute Chg FW DC note Diagnoses Acute lower gastrointestinal bleeding K92.2
[2022-04-29] MEDS: carvedilol 12.5 mg Tablet PO (10:55)
[2022-04-29] MEDS: lisinopril 20 mg Tablet PO (10:55)
[2022-04-29] MEDS: sodium chloride 0.9% 1,000 ML 30 ML IV (11:18)
--- NOTE | 2022-04-29 11:25 | ECG_ITS ---
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 Measurements Intervals [place] Rate: 88 P: 47 MA: 172 QRS: 24 QRSD: 104 T: 164 QT: 372 QTc: 450 Interpretive Statements SINUS RHYTHM LEFT VENTRICULAR HYPERTROPHY AND ST-T CHANGE [VOLTAGE CRITERIA PLUS ST/T ABNORMALITY] Compared to ECG 04/28/2022 04:52:52 Left ventricular hypertrophy now present ST (T wave) deviation now present Sinus bradycardia no longer present Sinus arrhythmia no longer present T-wave abnormality no longer present Possible ischemia no longer present Electronically Signed On 04-29-2022 12:09:32 CDT by India Jordan M.D. [id number]
--- NOTE | 2022-04-29 11:25 | PC.NURSE ---
spoke with dr. ramos. asked for ekg to be done and a troponin to be drawn.
--- NOTE | 2022-04-29 11:33 | ANES.PREANE2 ---
Pre-Anesthetic Assessment Height/Weight: Height 1.83 m Weight 89.811 kg Temp Pulse Resp BP Pulse Ox O2 Del Method 98.6 F 90 18 169/96 97 04/29/22 11:09 04/29/22 11:09 04/29/22 11:09 04/29/22 11:09 04/29/22 11:09 04/29/22 11:09 Operation Date: 04/29/22 12:00 Proposed Procedures p EGD(Not Applicable) - Colin Mcpherson DO s Colonoscopy(Not Applicable) - Colin Mcpherson DO Familial anesthetic complications: None Was Beta Luis Alberto taken within 24 hours: Yes Was Clonidine taken within 24 hours: N/A Last intake: > 8 hrs Social No alcohol and No tobacco Exam alert, oriented x 3, clear to auscultation bilaterally and regular rate & rhythm Airway Mallampati: Class II Dentition: other (poor dentition, multipl emissing and loose) CV/HEM Congestive Heart Failure and Hypertension EF recently recovered from 15% and requred lifevest - now up to 40% EF. Patient unable to tell me caue of CHF Anesthetic Plan ASA status: 4 Anesthesia: MAC Risk of > 500 ml blood loss (7ml/kg in children): No Other Pertinent Information Patient complaining of chest pressure and some dizziness. EKG obtained looks similar to prior one on 04/28. Troponin drawn per hospitalist request. Will have hospitalist evaluate patient for any new cardiac instability before proceeding Medications/Allergies Home Medications Medication Instructions Recorded Confirmed Last Taken Type cholecalciferol (vitamin D3) 25 25 mcg PO DAILY@12 01/19/22 04/28/22 01/18/22 History mcg (1,000 unit) capsule (Vitamin D3) carvedilol 12.5 mg tablet 12.5 mg PO BID@0900,2100 #180 tabs 03/16/22 04/28/22 Unknown Rx miscellaneous medical supply #1 ea 03/16/22 04/28/22 Unknown Rx (Blood Pressure Cuff) naproxen 375 mg tablet 375 mg PO BID PRN Pain 03/16/22 04/28/22 Unknown History furosemide 40 mg tablet 20 mg PO DAILY@0800 #90 tabs 04/27/22 04/28/22 Unknown Rx acetaminophen 500 mg tablet 1,000 mg PO Q4H PRN Pain 04/28/22 04/28/22 Unknown History ascorbic acid (vitamin C) 500 mg 500 mg PO DAILY@12 04/28/22 04/28/22 Unknown History tablet (Vitamin C) aspirin 81 mg tablet,delayed 81 mg PO QA 04/28/22 04/28/22 Unknown History release losartan 50 mg tablet 75 mg PO QAM 04/28/22 04/28/22 Unknown History magnesium oxide 400 mg PO DAILY@12 04/28/22 04/28/22 Unknown History omega-3 fatty acids-fish oil 684 1 cap PO EVERY OTHER DAY 04/28/22 04/28/22 Unknown History mg-1,200 mg capsule,delayed release potassium chloride 20 mEq 20 meq PO QAM 04/28/22 04/28/22 Unknown History tablet,extended release(part/cryst) (Klor-Con M) spironolactone 25 mg tablet 25 mg PO QA 04/28/22 04/28/22 Unknown History Allergies Allergy/AdvReac Type Severity Reaction Status Date / Time No Known Allergies Allergy Verified 04/28/22 08:56 Current Medications Generic Name Dose Route Start Last Admin Trade Name Freq PRN Reason Stop Dose Admin Acetaminophen 650 mg 04/28/22 07:55 04/28/22 10:34 Acetaminophen 325 Mg Tablet PO 650 mg Q6H PRN Administration Mild/Mod Pain Or Temp >/= 101 Carvedilol 12.5 mg 04/28/22 09:40 04/29/22 10:55 Carvedilol 12.5 Mg Tablet PO 12.5 mg BID@0900,2100 AYUSH Administration Sodium Chloride 1,000 mls @ 75 mls/hr 04/28/22 08:00 04/28/22 20:49 Sodium Chloride 0.9% IV 75 mls/hr .[id number] AYUSH Administration Sodium Chloride 1,000 mls @ 30 mls/hr 04/29/22 11:15 04/29/22 11:18 Sodium Chloride 0.9% IV 04/30/22 11:14 30 mls/hr .Q24H AYUSH Administration Morphine Sulfate 2 mg 04/28/22 11:20 04/29/22 04:07 Morphine 4 Mg/Ml Sdv 1 Ml IVP 2 mg Q4H PRN Administration SEVERE PAIN Pantoprazole Sodium 40 mg 04/28/22 08:00 04/29/22 08:47 Pantoprazole 40 Mg Sdv IVP 40 mg Q12H AYUSH Administration PFSH Anesthesia Medical History HTN (hypertension) Mitral regurgitation NSVT (nonsustained ventricular tachycardia) Surgical History H/O hand surgery Social History Smoking and tobacco status: former smoker Alcohol intake: never Data Anesthesia : 04/29/22 04:31 04/29/22 04:31 Short CBC 04/28/22 04/28/22 04/28/22 Range/Units 03:05 04:54 08:36 WBC 11.0 H (4.0-10.0) 10^3/uL Hgb 12.1 10.8 L 11.0 L (11.7-16.6) g/dL Hct 37.1 L 33.9 L 34.9 L (42.0-52.0) % MCV 93.9 (80-94) fl Plt Count 226 (130-400) 10^3/cmm Neut % (Auto) 56.0 % Neut # (Auto) 6.15 (1.8-7.7) 10^3/uL 04/28/22 04/28/22 04/29/22 Range/Units 17:57 23:15 04:31 WBC 5.3 (4.0-10.0) 10^3/uL Hgb 10.6 L 9.2 L 9.5 L (11.7-16.6) g/dL Hct 32.9 L 29.1 L 29.1 L (42.0-52.0) % MCV 92.7 (80-94) fl Plt Count 174 (130-400) 10^3/cmm Neut % (Auto) 48.8 % Neut # (Auto) 2.57 (1.8-7.7) 10^3/uL BMP 04/28/22 04/29/22 03:05 04:31 Sodium 140 142 Potassium 4.8 4.8 Chloride 104 106 Carbon Dioxide 26 29 BUN 29 H 13 Creatinine 1.3 H 1.0 Glucose 149 H 94 Calcium 9.3 8.3 L Cardiac Enzymes 04/28/22 04/28/22 04/28/22 Range/Units 03:05 04:54 09:36 Troponin T Baseline 16 H (0-15) ng/L Troponin T 120 Minute 19.93 H (0-15) ng/L Delta Troponin T 3.93 (0-10) ABS# Troponin T Hi Sens 6Hr 16.27 H (0-15) ng/L Troponin T Hi Sens 6Hr Delta 0.27 (0-12) ng/L Liver Function 04/28/22 04/29/22 Range/Units 03:05 04:31 Total Bilirubin 0.2 0.4 (0.15-1.2) mg/dL AST 13 14 (0-40) U/L ALT 11 10 (0-41) U/L Alkaline Phosphatase 56 45 (40-130) U/L Albumin 4.1 3.8 (3.5-5.2) g/dL Blood Bank 04/28/22 03:05 Blood Type B Positive Rho(D) Type Positive Antibody Screen Negative Coags 04/28/22 03:05 PT 13.80 INR 1.03 Cardiac Studies: Echocardiogram 01/19/22 Echocardiogram Limited Views 04/21/22
--- NOTE | 2022-04-29 11:53 | W.PM.OPSUD ---
Surgery/Procedure H&P Update DATE OF PROCEDURE: April 29, 2022 DATE H&P PERFORMED: 04/28/22 PLANNED PROCEDURE: Operation Date: 04/29/22 12:00 Proposed Procedures p EGD(Not Applicable) - DO gaurav Farah Colonoscopy(Not Applicable) - Colin Mcpherson DO
--- NOTE | 2022-04-29 11:53 | PC.NURSE ---
dr. ramos here to see pt. ok to proceed with colonoscopy. dr. gates notified. dr. jurado spoke with dr ramos/
[2022-04-29 12:22] LABS: Troponin(5th) Baseline 18 ng/L (0-15)
--- NOTE | 2022-04-29 12:47 | ANE.PACU2 ---
Inpatient post-anesthesia follow up: Airway intact: Yes Vital signs: Temperature 97.7 F Pulse Rate 83 Respiratory Rate 18 Blood Pressure 139/80 Pulse Oximetry 97 Oxygen Delivery Me thod Room Air Oxygen Flow Rate Fraction of Inspir ed Oxygen Hydration adequate: Yes Nausea and vomiting: No Pain level: 1 Mental status: Baseline
--- NOTE | 2022-04-29 13:43 | ECG_ITS ---
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 Measurements Intervals [place] Rate: 76 P: 52 [place]: 192 QRS: 31 QRSD: 110 T: 252 QT: 386 QTc: 435 Interpretive Statements SINUS RHYTHM LEFT VENTRICULAR HYPERTROPHY AND ST-T CHANGE [VOLTAGE CRITERIA PLUS ST/T ABNORMALITY] Compared to ECG 04/29/2022 11:25:14 No significant changes Electronically Signed On 04-29-2022 16:26:32 CDT by India Jordan M.D. [id number]
[2022-04-29 14:32] LABS: Troponin 5 2HR 18.42 ng/L (0-15)
[2022-04-29 14:36] LABS: Troponin 5 2HR Delta 0.42 ABS# (0-10)
== END 2022-04-29 16:45 | disposition home or self-care (01) | DRG 378 ==
LOC: ER 05:30 → MEDSURG 05:47
PROVIDERS: Surgery; Admitting Provider Student in an Organized Health Care Education/Training Program; Emergency Provider Emergency Medicine; PCP Electrodiagnostic Medicine; Visit Provider Internal Medicine
PROC: 0DJ08ZZ Inspection of Upper Intestinal Tract, Via Natural or Artificial Opening Endoscopic (ICD-10-PCS; CPT 43235; principal; 2022-04-29 12:00)
PROC: 0DJD8ZZ Inspection of Lower Intestinal Tract, Via Natural or Artificial Opening Endoscopic (ICD-10-PCS; CPT 45378; 2022-04-29 12:00)
DX: K57.31 Diverticulosis of large intestine without perforation or abscess with bleeding (principal); I42.8 Other cardiomyopathies; N17.9 Acute kidney failure, unspecified; K29.81 Duodenitis with bleeding; K64.8 Other hemorrhoids; I10 Essential (primary) hypertension; I34.0 Nonrheumatic mitral (valve) insufficiency; R55 Syncope and collapse; Z87.891 Personal history of nicotine dependence
CPT/HCPCS: 36415; 43239; 45378; 74177; 80053; 83690; 84484; 85014; 85018; 85025; 85610; 86850; 86900; 88305; 88342; 93005; 99285; C9113; J0360; J2270; J2704; J7030; Q9967

== ENCOUNTER → 2023-01-13 15:45 | Outpatient (BNVA) | payer MEDICAID, SELFPAY | PROVIDERS: PCP Electrodiagnostic Medicine; Visit Provider Internal Medicine Cardiovascular Disease | DX: I42.0 Dilated cardiomyopathy (principal); R06.02 Shortness of breath; I50.9 Heart failure, unspecified | CPT/HCPCS: 36415; 80048 ==

== ENCOUNTER 2025-01-15 06:05 | Outpatient (CLI) | payer MEDICAID, SELFPAY ==
--- NOTE | 2025-01-15 06:15 | USCV_ITS ---
Yoel Ed Age: 54 Gender: M : 1970 Exam Date: 01/15/2025 06:27 Ordering Phys: Rahul Major MD ([email or web address]) Technologist: Exam Location: [facility] [place] Indication: cardiomyopathy BP: 124 / 75 HR: 77 Rhythm: Sinus Technical Quality: Adequate MEASUREMENTS (Male / Female) Normal Values 2D ECHO LV Diastolic Diameter PLAX 6.1 cm 4.2 - 5.9 / 3.9 - 5.3 cm IVS Diastolic Thickness 1.3 cm 0.6 - 1.0 / 0.6 - 0.9 cm IVS Systolic Thickness 1.8 cm LVPW Diastolic Thickness 1.3 cm 0.6 - 1.0 / 0.6 - 0.9 cm LVPW Systolic Thickness 1.6 cm LVOT Diameter 2.2 cm LV Ejection Fraction 2D Teich 63.5 % LV Ejection Fraction MOD 4C 61.1 % LV Ejection Fraction MOD 2C 67.0 % LV Ejection Fraction 2C AL 66.6 % LA Diameter 4.0 cm RA Systolic Volume 4C AL 37.8 ml RA Systolic Volume 4C MOD 34.6 ml Aorta at Sinotubular Diameter 3.2 cm IVC Diameter 1.7 cm M-MODE LA Ao Ratio MM 1.1 AV Cusp Separation MM 2.2 cm DOPPLER AV Peak Velocity 145.0 cm/s LVOT Peak Velocity 86.0 cm/s AV Area Cont Eq vti 2.3 cm squared AV Area Cont Eq pk 2.3 cm squared MV Peak Velocity 115.0 cm/s MV Area PHT 3.6 cm squared TR Peak Velocity 133.0 cm/s TR Peak Gradient 7.1 mmHg TV Peak E Velocity 101.0 cm/s PV Peak Velocity 130.0 cm/s FINDINGS Left Ventricle Left ventricle is dilated. LV systolic function is normal with EF of 55-60%. No regional wall motion abnormalities are seen. Mild left ventricular hypertrophy seen. Grade 1 diastolic dysfunction Right Ventricle Normal in size and function Right Atrium Normal in size Left Atrium Normal in size Mitral Valve Structurally normal mitral valve. Mild mitral regurgitation Aortic Valve Aortic valve is thickened. No significant stenosis or regurgitation. Tricuspid Valve Insufficient TR jet to calculate RVSP Pulmonic Valve Not well visualized Pericardium Normal Aorta Normal in size IVC Appears to be normal CONCLUSIONS LV systolic function is normal with EF of 55-60% Grade 1 diastolic dysfunction Mild mitral regurgitation Compared to prior echocardiogram from 2021, LV systolic function has improved significantly and is normal now. Russ Parker MD (Electronically Signed) Final Date: 16 January 2025 10:51 S
== END 2025-01-15 06:06 | disposition home or self-care (01) ==
LOC: RAD 06:06
PROVIDERS: PCP Electrodiagnostic Medicine; Visit Provider Internal Medicine Cardiovascular Disease
DX: I34.0 Nonrheumatic mitral (valve) insufficiency (principal); I51.7 Cardiomegaly; R06.02 Shortness of breath; R07.9 Chest pain, unspecified
CPT/HCPCS: 93306